=== PATIENT | male | born 1970 | race Caucasian/White ===

== ENCOUNTER 2018-09-15 23:17 | Inpatient (IN) | payer MEDICAID ==
[~2018-09-15] VITALS: Ht 172.7 cm; Wt 61.0 kg
[2018-09-15 23:45] VITALS: BP 129/77
--- NOTE | 2018-09-15 23:46 | NUR ---
RN MS ADMISSION NOTES RECEIVED PATIENT DIRECT ADMIT FROM [facility] WITH DX. OF GI BLEED. PATIENT IS ALERT AND ORIENTED X3, VERBALLY RESPONSIVE, ABLE TO MAKE NEEDS KNOWN. SPEECH IS SLOW BUT UNDERSTANDABLE. PATIENT ABLE TO AMBULATE. BREATHING EVEN AND UNLABORED. NO SOB NOTED. TOLERATING ROOM AIR. CURRENTLY WITH NO COMPLAINTS OF PAIN OR DISCOMFORT. IV ON RIGHT AC G#20 INTACT AND PATENT. SKIN DRY AND WARM TO TOUCH. AFEBRILE. SKIN ASSESSMENT RENDERED - FOUND MULTIPLE REDNESS AND BRUISES - PICTURES TAKEN AND PLACED IN CHART. ORIENTED TO THE USE OF UNIT AMENITIES. ALL OTHER NEEDS ATTENDED TO. SAFETY MEASURES IN PLACE. CALL LIGHT WITHIN REACH. WILL CONTINUE TO MONITOR.
[2018-09-15] MEDS ORDERED: THIA100T88 PO (23:51)
[2018-09-15] MEDS ORDERED: LEVE1000 PO (23:51)
[2018-09-15] MEDS ORDERED: LACT10SO PO (23:51)
[2018-09-15] MEDS ORDERED: SPIR25TA6 PO (23:51)
[2018-09-15] MEDS ORDERED: FERR325T23 PO (23:51)
[2018-09-15] MEDS ORDERED: ZONI100C6 PO (23:51)
[2018-09-15] MEDS ORDERED: FOLI1TAB16 PO (23:51)
[2018-09-15] MEDS ORDERED: PENT400T12 PO (23:51)
[2018-09-15] MEDS ORDERED: MULT1TAB73 PO (23:51)
--- NOTE | 2018-09-16 00:07 | NUR ---
RN MS NOTES INFORMED JOHN RIGGS OF PATIENT'S ADMISSION FROM [facility]. REQUESTED FOR ADMIT ORDERS. PER JOHN VUONG, HE WILL ENTER ORDERS IN.
[2018-09-16] MEDS ORDERED: MAGNESIUM HYDROXIDE 30 ML UDC PO PRN (00:30)
[2018-09-16] MEDS ORDERED: MAG HYDROX/AL HYDROX/SIMETH 30 ML UDC PO PRN (00:30)
[2018-09-16] MEDS ORDERED: HYDROCODONE/APAP 5/325MG 1 EACH TABLET PO PRN (00:30)
[2018-09-16] MEDS ORDERED: ACETAMINOPHEN 325 MG TABLET PO PRN (00:30)
[2018-09-16] MEDS ORDERED: ONDANSETRON HCL/PF 4 MG/2 ML VIAL IVP PRN (00:30)
[2018-09-16] MEDS ORDERED: Z GUARD REMEDY 2 OZ OINT TP PRN (00:30)
--- NOTE | 2018-09-16 00:42 | NUR ---
RN MS NOTES PATIENT'S ELECTRONIC CIGARETTE WAS TAKEN IN PUT IN A ZIPLOCK AND PLACED IN NURSING STATION WITH PATIENT'S LABEL.
--- NOTE | 2018-09-16 01:26 | NUR ---
RN MS NOTES PATIENT WAS INFORMED REGARDING OBTAINING A STOOL SAMPLE. INSTRUCTED PATIENT TO CALL NURSE OR FINANCIAL PLANNING CONSULTANT WHEN NEEDING TO MAKE BOWEL MOVEMENT. PATIENT DID NOT INFORM NURSE OR FINANCIAL PLANNING CONSULTANT THAT HE HAD ALREADY MADE A BOWEL MOVEMENT. SAW HIS STOOL IN THE TOILET AND INFORMED THE NURSE THEREAFTER. INSTRUCTED PATIENT TO LET NURSE KNOW THE NEXT TIME HE NEEDS TO GO SO THAT SOMEONE CAN ASSIST HIM IN OBTAINING A SAMPLE. PATIENT VERBALIZED UNDERSTANDING.
--- NOTE | 2018-09-16 05:28 | NUR ---
RN MS NOTES PATIENT HAS ALLERGIES TO COLOGNE FROM THE BRAND "POLO". UNABLE TO DOCUMENT IT COLOGNE AND ENTERED PERFUME INSTEAD. PER PATIENT HIS THROAT "CONSTRICTS" WITH THAT SPECIFIC COLOGNE. WILL NOTIFY ONCOMING NURSE.
[2018-09-16 05:51] LABS: BASOPHILS % (AUTO) 1.5 % (0.0-2.0); EOSINOPHILS % (AUTO) 2.1 % (0.0-6.0); HEMATOCRIT 37 % (39-51); HEMOGLOBIN 12.7 g/dL (13.5-17.5); LYMPHOCYTES # (AUTO) 0.6 /CMM (0.8-4.8); MEAN CORPUSCULAR HGB CONC 34 g/dl (31.0-36.0); MEAN CORPUSCULAR VOLUME 105 fL (80-96); MONOCYTES # (AUTO) 0.9 /CMM (0.1-1.30); MONOCYTES % (AUTO) 30.2 % (2.0-12.0); NEUTROPHILS # (AUTO) 1.3 /CMM (1.8-8.9); NEUTROPHILS % (AUTO) 44.2 % (43.0-81.0); WHITE BLOOD COUNT (AUTO) 2.9 K/uL (4.3-11.0)
[2018-09-16 06:02] LABS: ALBUMIN 2.9 g/dL (3.4-5.0); BILIRUBIN,TOTAL 0.7 mg/dL (0.2-1.0); CALCIUM, SERUM 8.3 mg/dL (8.5-10.1); CREATININE 0.6 mg/dL (0.6-1.3); MAGNESIUM 1.8 mg/dL (1.8-2.4); PHOSPHORUS 3.1 mg/dL (2.5-4.9); POTASSIUM 3.7 mmol/L (3.5-5.1); TOTAL PROTEIN, SERUM 7.4 g/dL (6.4-8.2)
[2018-09-16 06:10] LABS: THYROID STIMULATING HORMONE 0.774 uIU/mL (0.358-3.74)
[2018-09-16 06:20] LABS: PLATELET COUNT (AUTO) 31 /CMM (150-450)
--- NOTE | 2018-09-16 06:23 | NUR ---
RN MS NOTES RECEIVED CRITICAL RESULT FOR PLT = 31. PAGED CRITICAL CARE CLINICAL NURSE SPECIALIST YEVGENIY RIGGS. WAITING FOR A RESPONSE. WILL CONTINUE TO MONITOR.
[2018-09-16 06:28] LABS: APPEARANCE,URINE CLEAR (CLEAR); BILIRUBIN,URINE NEGATIVE (NEGATIVE); BLOOD, URINE NEGATIVE Ery/uL (NEGATIVE); COLOR,URINE YELLOW (YELLOW); KETONES,URINE NEGATIVE (NEGATIVE); LEUKOCYTE ESTERASE ,URINE 3+ (NEGATIVE); NITRITE, URINE POSITIVE (NEGATIVE); PH,URINE 7.5 (5.0-8.0); PROTEIN,URINE NEGATIVE (NEGATIVE); UGLUCOSE NEGATIVE (NEGATIVE)
[2018-09-16 06:47] LABS: BACTERIA,URINE Rare /HPF (None Seen); RBC,URINE NONE SEEN /HPF (0-2); SQUAMOUS EPITHELIAL CELL,UR Rare /HPF (None Seen); WBC,URINE 21-50 /HPF (0-3)
--- NOTE | 2018-09-16 06:48 | NUR ---
RN MS NOTES PATIENT RESTING IN BED. NO ACUTE CHANGES THROUGHOUT SHIFT. PATIENT HAD A BOWEL MOVEMENT ONCE THROUGHOUT SHIFT AND IT WAS BLACK IN COLOR. UNABLE TO OBTAIN SAMPLE PATIENT DID NOT INFORM NURSE WHEN HE WAS INSTRUCTED TO DO SO. WILL INFORM ONCOMING NURSE TO COLLECT WHEN PATIENT GOES AGAIN. BREATHING EVEN AND UNLABORED. NO SOB NOTED. TOLERATING ROOM AIR. NO COMPLAINTS OF PAIN OR DISCOMFORT. NO FACIAL GRIMACING. IV INTACT AND PATENT. KEPT NPO PER MD ORDER. ALL OTHER NEEDS ATTENDED TO. SAFETY MEASURES IN PLACE. CALL LIGHT WITHIN REACH. WILL ENDORSE TO ONCOMING NURSE FOR LISA.
--- NOTE | 2018-09-16 06:54 | NUR ---
RN MS NOTES PATIENT FOUNDER YEVGENIY KEELY AGAIN TO RELAY CRITICALLY LOW PLT OF 31. WAITING FOR RESPONSE. WILL RELAY TO ONCOMING NURSE, BEST FANG.
[2018-09-16] MEDS ORDERED: LACTULOSE 10 G/15 ML UDC (PYXIS) PO PRN (07:30)
--- NOTE | 2018-09-16 07:32 | NUR ---
RN OPENING NOTE PT WAS RECEIVED IN BED AT LOWEST AND LOCKED POSITION WITH SIDE RAILS UP X2, A/OX3 BREATHING EVEN AND UNLABORED ON RA, NO S/S OR CURRENT COMPLAINTS OF ANY DISTRESS OR PAIN NOTED, IV IS PATENT AND INTACT, NOTED THAT PT PLT WERE 31 HOSPITALIST GEOVANY GALVAN MADE AWARE AND HE STATED NO TRANSFUSION UNLESS ITS BELOW 20, SAFETY PRECAUTIONS IN PLACE, CALL LIGHT WITHIN REACH, WILL MONITOR ACCORDINGLY
[2018-09-16 08:00] VITALS: BP 114/61
[2018-09-16] MEDS ORDERED: LORAZEPAM INJ 2 MG/ML VIAL IV PRN (08:30)
[2018-09-16 08:43] LABS: LYMPHOCYTES % (MANUAL) 25 % (16-48); MONOCYTES % (MANUAL) 22 % (0-11.0); NEUTROPHILS % (MANUAL) 53 (42-76)
[2018-09-16] MEDS: LEVETIRACETAM (500MG) 1,500 MG in IV NS 0.9% 100 ML IV SCH ×2 (08:59→20:54)
[2018-09-16] MEDS ORDERED: PENTOXIFYLLINE 400 MG TABLET.SA PO SCH (09:00)
[2018-09-16] MEDS ORDERED: SPIRONOLACTONE 25 MG TABLET PO SCH (09:00)
[2018-09-16] MEDS ORDERED: THIAMINE HCL 100 MG TABLET PO SCH (09:00)
[2018-09-16] MEDS ORDERED: ZONISAMIDE 100 MG CAPSULE PO SCH (09:00)
[2018-09-16] MEDS ORDERED: FOLIC ACID 1 MG TABLET PO SCH (09:00)
[2018-09-16] MEDS ORDERED: LEVETIRACETAM (250 MG) 250 MG TABLET PO SCH (09:00)
[2018-09-16] MEDS ORDERED: FERROUS SULFATE (325 MG) 325 MG/TAB TABLET PO SCH (09:00)
[2018-09-16] MEDS: IV D5/ 0.9% NACL 1,000 ML IV PRN (09:02)
[2018-09-16] MEDS: PANTOPRAZOLE 40 MG VIAL IV SCH ×2 (09:12→16:05)
[2018-09-16] MEDS: MULTIVITAMINS,THERAGRAN 1 UDTAB TABLET PO SCH (09:13)
[2018-09-16] MEDS: CEFTRIAXONE 1 G in IV D5W 50 ML IV SCH (09:53)
--- NOTE | 2018-09-16 10:07 | NUR ---
WOUND CARE CONSULT:PATIENT PRESENT ON SCROTUM, INNER BUTTOCKS , BOTH GROIN MASD , AND BOTH ARMS MULTIPLE BRUISES ,SEIZURE PRECAUTION WILL BE APPLIED , ALL SKIN ISSUES POA,BEBO SCALE 19, RECOMMENDATION MADE AND DISCUSSED WITH NURSING STAFF , IN AGREEMENT WITH PLAN OF CARE Addendum: 09/16/18 at 1016 by ROSELINE ESTRELLA RN Amended: Links added.
--- NOTE | 2018-09-16 12:30 | NUR ---
RN NOTE STOOL COLLECTED FOR OCCULT BLOOD AT THIS TIME, WILL SEND TO LAB AND AWAIT RESULTS. WILL MONITOR PT ACCORDINGLY
[2018-09-16] MEDS: CLOTRIMAZOLE 1% 15 GM TUBE TP SCH ×2 (13:10→16:05)
[2018-09-16 16:00] VITALS: BP 131/74
[2018-09-16 16:42] LABS: OCCULT BLOOD STOOL POSITIVE (NEGATIVE)
--- NOTE | 2018-09-16 17:00 | NUR ---
RN NOTE CONSENT FOR EGD SIGNED AT THIS TIME
--- NOTE | 2018-09-16 18:20 | NUR ---
RN CLOSING NOTE PT IN BED AT LOWEST AND LOCKED POSITION WITH SIDE RAILS UP X2, A/OX3 BREATHING EVEN AND UNLABORED, NO S/S OF ANY DISTRESS OR PAIN NOTED, IV IS PATENT AND INTACT WITH IVF RUNNING, SAFETY PRECAUTIONS IN PLACE, CALL LIGHT WITHIN REACH, WILL ENDORSE TO RECONNAISSANCE MAN RN FOR LISA.
--- NOTE | 2018-09-16 19:30 | NUR ---
RN MS OPENING NOTES RECEIVED PATIENT IN BED AWAKE, ALERT AND ORIENTED X3, VERBALLY RESPONSIVE, ABLE TO MAKE NEEDS KNOWN. BREATHING EVEN AND UNLABORED. NO SOB NOTED. TOLERATING ROOM AIR. NO COMPLAINTS OF PAIN OR DISCOMFORT. NO FACIAL GRIMACING. IV INTACT AND PATENT WITH IVF INFUSING. REMAINS NPO PER MD ORDER. ALL OTHER NEEDS ATTENDED TO. SAFETY MEASURES IN PLACE. CALL LIGHT WITHIN REACH. WILL CONTINUE TO MONITOR.
[2018-09-16 20:00] VITALS: BP 132/75
--- NOTE | 2018-09-16 21:30 | NUR ---
RN MS NOTES RECEIVED TELEPHONE ORDER FROM JOHN TAM: 1. CANCEL EGD TOMORROW 09/17/18. 2. CANCEL NPO STATUS 3. CARDIAC DIET ORDERS NOTED AND CARRIED OUT. WILL CONTINUE TO MONITOR.
[2018-09-17] MEDS: IV D5/ 0.9% NACL 1,000 ML IV PRN (02:34)
[2018-09-17 06:30] LABS: BASOPHILS % (AUTO) 0.4 % (0.0-2.0); EOSINOPHILS % (AUTO) 2.2 % (0.0-6.0); HEMATOCRIT 41 % (39-51); HEMOGLOBIN 13.6 g/dL (13.5-17.5); LYMPHOCYTES # (AUTO) 0.4 /CMM (0.8-4.8); LYMPHOCYTES % (AUTO) 16.6 % (20.0-44.0); MEAN CORPUSCULAR HGB CONC 34 g/dl (31.0-36.0); MEAN CORPUSCULAR VOLUME 106 fL (80-96); MONOCYTES # (AUTO) 0.7 /CMM (0.1-1.30); MONOCYTES % (AUTO) 29.4 % (2.0-12.0); NEUTROPHILS # (AUTO) 1.3 /CMM (1.8-8.9); NEUTROPHILS % (AUTO) 51.4 % (43.0-81.0); RED BLOOD CELL COUNT(AUTO) 3.82 MIL/uL (4.5-6.0); WHITE BLOOD COUNT (AUTO) 2.5 K/uL (4.3-11.0)
[2018-09-17 06:39] LABS: CREATININE 0.7 mg/dL (0.6-1.3); POTASSIUM 3.8 mmol/L (3.5-5.1)
[2018-09-17 06:41] LABS: PLATELET COUNT (AUTO) 23 /CMM (150-450)
--- NOTE | 2018-09-17 06:46 | NUR ---
RN MS NOTES RECEIVED CRITICAL LAB RESULT FOR PLATELET OF 23. PAGED ND YEVGENIY RIGGS. WAITING FOR RESPONSE. WILL CONTINUE TO MONITOR.
--- NOTE | 2018-09-17 06:56 | NUR ---
RN MS CLOSING NOTES PATIENT RESTING IN BED. NO ACUTE CHANGES THROUGHOUT SHIFT. BREATHING EVEN AND UNLABORED. NO SOB NOTED. TOLERATING ROOM AIR. NO COMPLAINTS OF PAIN OR DISCOMFORT. NO FACIAL GRIMACING. IV INTACT AND PATENT WITH IVF INFUSING. ALL OTHER NEEDS ATTENDED TO. SAFETY MEASURES IN PLACE. CALL LIGHT WITHIN REACH. WILL ENDORSE TO ONCOMING NURSE FOR LISA.
--- NOTE | 2018-09-17 07:00 | NUR ---
MS RN NOTES PATIENT IN BED ALERT ORIENTED X 3. NO ACUTE DISTRESS NOTED. BREATHING UNLABORED. NO ACUTE DISTRESS NOTED. IV ACCESS PATENT AND INTACT, NO REDNESS OR SWELLING NOTED. SAFETY MEASURES IN PLACE. CALL LIGHT WITHIN REACH. WILL CONTINUE TO MONITOR ACCORDINGLY.
[2018-09-17 07:01] LABS: THYROID STIMULATING HORMONE 1.212 uIU/mL (0.358-3.74)
--- NOTE | 2018-09-17 07:23 | NUR ---
RN MS NOTES RELAYED TO DAY NURSE REGARDING PLT 23. ALSO INFORMED NURSE THAT HIGHWAY MAINTENANCE WORKER GEOVANY GAVE AN ORDER TO TRANSFUSE ONLY IF PLT IS LESS THAN 20.
--- NOTE | 2018-09-17 07:50 | NUR ---
MS RN NOTES DOCTOR GEOVANY GALVAN NOTIFIED REGARDING PLATELET 23, NO NEW ORDERS MADE AT THIS TIME.
[2018-09-17] MEDS: PANTOPRAZOLE 40 MG VIAL IV SCH ×2 (08:34→16:48)
[2018-09-17] MEDS: MULTIVITAMINS,THERAGRAN 1 UDTAB TABLET PO SCH (08:35)
[2018-09-17] MEDS: FOLIC ACID 1 MG TABLET PO SCH (08:35)
[2018-09-17] MEDS: CLOTRIMAZOLE 1% 15 GM TUBE TP SCH ×2 (08:35→16:49)
[2018-09-17 08:39] VITALS: BP 158/91
[2018-09-17] MEDS: CEFTRIAXONE 1 G in IV D5W 50 ML IV SCH (08:39)
[2018-09-17 08:58] LABS: LYMPHOCYTES % (MANUAL) 18 % (16-48); MONOCYTES % (MANUAL) 30 % (0-11.0); NEUTROPHILS % (MANUAL) 52 (42-76)
[2018-09-17] MEDS: LEVETIRACETAM (500MG) 1,500 MG in IV NS 0.9% 100 ML IV SCH (09:28)
--- NOTE | 2018-09-17 11:42 | NUR ---
MS RN NOTES SEEN AND EVALUATED BY DR GEOVANY GALVAN WITH NEW ORDERS MADE, NOTED AND CARRIED OUT.
[2018-09-17] MEDS ORDERED: phenytoin SODIUM IV 1,000 MG in IV NS 0.9% 100 ML IV ONE (12:00)
[2018-09-17] MEDS: SUCRALFATE 1 G TABLET PO SCH ×2 (16:48→21:13)
[2018-09-17 17:32] VITALS: BP 115/70
--- NOTE | 2018-09-17 19:00 | NUR ---
MS RN NOTES PATIENT IN BED ALERT ORIENTED X 3. NO ACUTE DISTRESS NOTED. BREATHING UNLABORED. NO ACUTE DISTRESS NOTED. IV ACCESS PATENT AND INTACT, NO REDNESS OR SWELLING NOTED. DUE MEDICATIONS GIVEN, NO ASE NOTED. NEEDS ATTENDED AND ANTICIPATED. SAFETY MEASURES IN PLACE. CALL LIGHT WITHIN REACH. ENDORSED TO NIGHT NURSE FOR CONTINUITY OF CARE.
--- NOTE | 2018-09-17 19:30 | NUR ---
MS/RN OPENING NOTES PT AWAKE. ON ROOM AIR, BREATHING EVEN AND UNLABORED. DENIES SOB AND PAIN AT THIS TIME. IV TO LAC PATENT AND INTACT RUNNING IVF ORDERED. NO NEEDS EXPRESSED AT THIS TIME. BED IN LOW/LOCKED POSITION WITH CALL LIGHT IN REACH, HOB ELEVATED AND BILAT. COSTA RAILS UP X2. BED ALARM ON FOR SAFETY. WILL CONTINUE TO MONITOR
[2018-09-17 20:00] VITALS: BP 118/68
[2018-09-17] MEDS: PHENYTOIN EXTENDED RELEASE 100 MG CAPSULE PO SCH (21:13)
[2018-09-17] MEDS: LEVETIRACETAM (250 MG) 250 MG TABLET PO SCH (21:13)
[2018-09-18] MEDS: IV D5/ 0.9% NACL 1,000 ML IV PRN ×2 (06:11→20:39)
[2018-09-18 06:12] LABS: BASOPHILS % (AUTO) 0.9 % (0.0-2.0); HEMATOCRIT 36 % (39-51); HEMOGLOBIN 12.2 g/dL (13.5-17.5); LYMPHOCYTES # (AUTO) 0.6 /CMM (0.8-4.8); MEAN CORPUSCULAR HGB CONC 34 g/dl (31.0-36.0); MEAN CORPUSCULAR VOLUME 106 fL (80-96); NEUTROPHILS # (AUTO) 1.2 /CMM (1.8-8.9); NEUTROPHILS % (AUTO) 41.1 % (43.0-81.0); RED BLOOD CELL COUNT(AUTO) 3.38 MIL/uL (4.5-6.0); WHITE BLOOD COUNT (AUTO) 2.9 K/uL (4.3-11.0)
[2018-09-18] MEDS: SUCRALFATE 1 G TABLET PO SCH ×4 (06:52→21:08)
--- NOTE | 2018-09-18 07:02 | NUR ---
MS RN NOTES PATIENT IN BED EYES CLOSED, EASY TO AROUSE. NO ACUTE DISTRESS NOTED. BREATHING UNLABORED. NO ACUTE DISTRESS NOTED. IV ACCESS PATENT AND INTACT, NO REDNESS OR SWELLING NOTED. SAFETY MEASURES IN PLACE. CALL LIGHT WITHIN REACH. WILL CONTINUE TO MONITOR ACCORDINGLY.
[2018-09-18 07:28] LABS: BAND % (MANUAL) 4 % (0.0-5.0); EOSINOPHILS % (MANUAL) 1 % (0-4); LYMPHOCYTES % (MANUAL) 23 % (16-48); MONOCYTES % (MANUAL) 30 % (0-11.0); NEUTROPHILS % (MANUAL) 42 (42-76)
[2018-09-18 07:38] LABS: PLATELET COUNT (AUTO) 25 /CMM (150-450)
--- NOTE | 2018-09-18 07:52 | NUR ---
MS/RN CLOSING NOTES PT ASLEEP, OPENS EYES TO NAME. REMAINS ON ROOM AIR, BREATHING EVEN AND UNLABORED. DENIES SOB AND PAIN. IV TO LFA PATENT AND INTACT RUNNING IVF ORDERED. NO SIGNIFICANT CHANGES OVERNIGHT. ALL NEEDS MET. AWAITING CALL FROM BLOOD BANK FOR 1 UNIT OF PLATELETS. BED REMAINS IN LOW/LOCKED POSITION WITH CALL LIGHT IN REACH, HOB ELEVATED AND BILAT. COSTA RAILS UP X2. BED ALARM ON FOR SAFETY. ENDORSED TO DAY SHIFT RN LISA.
[2018-09-18 08:00] VITALS: BP 112/70
[2018-09-18 08:08] LABS: IMMUNOGLOBULIN A, SERUM 701 mg/dL (90-386); IMMUNOGLOBULIN G, SERUM 2027 mg/dL (700-1600); IMMUNOGLOBULIN M, SERUM 275 mg/dL (20-172)
[2018-09-18] MEDS: FOLIC ACID 1 MG TABLET PO SCH (08:33)
[2018-09-18] MEDS: PANTOPRAZOLE 40 MG VIAL IV SCH ×2 (08:33→16:52)
[2018-09-18] MEDS: CLOTRIMAZOLE 1% 15 GM TUBE TP SCH ×2 (08:34→17:02)
[2018-09-18] MEDS: MULTIVITAMINS,THERAGRAN 1 UDTAB TABLET PO SCH (08:34)
[2018-09-18] MEDS: LEVETIRACETAM (250 MG) 250 MG TABLET PO SCH ×2 (08:34→20:40)
[2018-09-18] MEDS: CEFTRIAXONE 1 G in IV D5W 50 ML IV SCH (08:37)
[2018-09-18] MEDS ORDERED: CHLORDIAZEPOXIDE HCL 25 MG CAPSULE PO PRN (09:00)
--- NOTE | 2018-09-18 09:30 | NUR ---
MS RN NOTES SEEN AND EVALUATED BY DR GEOVANY GALVAN, CLARIFIED ONE UNIT OF PLATELETS TRANSFUSION, AWARE OF CURRENT PLATELETS LEVEL, WITH ORDERS TO GO AHEAD AND GIVE ONE UNIT PLATELETS.
[2018-09-18 10:20] VITALS: BP 127/69
--- NOTE | 2018-09-18 10:22 | NUR ---
MS RN NOTES STARTED PLATELETS TRANSFUSION, PATIENT WITH STABLE VITAL SIGNS, NO ACUTE DISTRESS NOTED, BREATHING UNLABORED. ALERT ORIENTED X 3. IV ACCESS PATENT AND INTACT. WILL CONTINUE TO MONITOR PATIENT.
[2018-09-18 10:37] VITALS: BP 107/72
[2018-09-18 10:54] VITALS: BP 105/68
--- NOTE | 2018-09-18 10:54 | NUR ---
MS RN NOTES ENDED PLATELETS TRANSFUSION, PATIENT REMAINS WITH STABLE VITAL SIGNS, NO ACUTE DISTRESS NOTED, BREATHING UNLABORED. ALERT ORIENTED X 3. IV ACCESS PATENT AND INTACT. NO ADVERSE REACTION OF PLATELET TRANSFUSION NOTED. WILL CONTINUE TO MONITOR PATIENT.
[2018-09-18 16:00] VITALS: BP 113/66
--- NOTE | 2018-09-18 19:00 | NUR ---
MS RN NOTES PATIENT IN BED ALERT ORIENTED X 3. NO ACUTE DISTRESS NOTED. BREATHING UNLABORED. NO ACUTE DISTRESS NOTED. IV ACCESS PATENT AND INTACT, NO REDNESS OR SWELLING NOTED.DUE MEDICATIONS GIVEN, NO ASE NOTED. NEEDS ATTENDED AND ANTICIPATED. KEPT CLEAN DRY AND COMFORTABLE. SAFETY MEASURES IN PLACE. CALL LIGHT WITHIN REACH. ENDORSED TO NIGHT NURSE FOR CONTINUITY OF CARE.
--- NOTE | 2018-09-18 19:20 | NUR ---
MS RN RECEIVE PT IN BED A/O X 3, RESPIRATIONS EVEN AND UNLABORED, NO SOB NOTED, NO DISTRESS, SAFETY MEASURES IN PLACE. WILL CONTINUE TO MONITOR.
[2018-09-18 20:00] VITALS: BP 102/67
[2018-09-18] MEDS: PHENYTOIN EXTENDED RELEASE 100 MG CAPSULE PO SCH (21:08)
--- NOTE | 2018-09-19 06:22 | NUR ---
MS RN ASLEEP AND EASILY AWAKEN, NO COMPLAIN OF ABDOMINAL PAIN, N/V. NO S/S OF BLEEDING NOTED. RESPIRATION EVEN AND UNLABORED, STABLE AND NOT IN DISTRESS, NURSING CARE RENDERED, NEEDS ATTENDED AND ANTICIPATED, KEPT CLEAN AND DRY AND COMFORTABLE. SAFETY MEASURES AT ALL TIMES. ENDORSE TO THE NEXT SHIFT.
--- NOTE | 2018-09-19 07:24 | NUR ---
RN OPENING NOTES PT RESTING IN BED. NO APPARENT S/S OF PAIN, DISTRESS OR SOB AT THIS TIME. PT HAS A LEFT FOREARM #20 IV RUNNING D5NS@75ML/HR. PT TOLERATING WELL. PT WILL BE NPO AT MIDNIGHT FOR EGD. SAFETY PRECAUTIONS IN PLACE, BED IN LOWEST LOCKED POSITION, X2 SIDE RAILS UP AND CALL LIGHT WITHIN REACH. WILL CONTINUE TO MONITOR.
[2018-09-19 08:00] VITALS: BP 116/78
[2018-09-19] MEDS: IV D5/ 0.9% NACL 1,000 ML IV PRN (08:10)
[2018-09-19] MEDS: MULTIVITAMINS,THERAGRAN 1 UDTAB TABLET PO SCH (08:12)
[2018-09-19] MEDS: LEVETIRACETAM (250 MG) 250 MG TABLET PO SCH ×2 (08:12→21:11)
[2018-09-19] MEDS: PANTOPRAZOLE 40 MG VIAL IV SCH ×2 (08:13→16:24)
[2018-09-19] MEDS: SUCRALFATE 1 G TABLET PO SCH ×4 (08:13→21:11)
[2018-09-19] MEDS: FOLIC ACID 1 MG TABLET PO SCH (08:13)
[2018-09-19] MEDS: CLOTRIMAZOLE 1% 15 GM TUBE TP SCH ×2 (08:20→17:09)
[2018-09-19] MEDS: NICOTINE PATCH (21MG) 21 MG PATCH.TD24 TD SCH (09:31)
[2018-09-19 16:00] VITALS: BP 125/73
[2018-09-19 16:28] VITALS: BP 123/73
[2018-09-19 16:38] VITALS: BP 124/75
--- NOTE | 2018-09-19 16:40 | NUR ---
RN NOTES BEGAN PLATELET TRANSFUSION. WILL CONTINUE TO MONITOR.
[2018-09-19 17:08] VITALS: BP 135/79
--- NOTE | 2018-09-19 18:37 | NUR ---
RN CLOSING NOTES PT RESTING IN BED. NO APPARENT S/S OF PAIN, DISTRESS OR SOB DURING SHIFT. PT HAS A LEFT FOREARM #20 IV RUNNING D5NS@75ML/HR. PT TOLERATING WELL. PT WILL BE NPO AT MIDNIGHT FOR EGD. PT S/P 1 UNIT 0F PLATELETS, NO SIGNS OF REACTION. SAFETY PRECAUTIONS IN PLACE, BED IN LOWEST LOCKED POSITION, X2 SIDE RAILS UP AND CALL LIGHT WITHIN REACH. WILL ENDORSE TO BRUSHER TENDER NURSE FOR CONTINUITY OF CARE.
--- NOTE | 2018-09-19 19:34 | NUR ---
RN MS OPENING NOTES RECEIVED REPORT BEDSIDE, PT SITTING UP IN BED, AWAKE ALERT ORIENTED X3, BREATHING EVEN AND UNLABORED ON ROOM AIR. NO COMPLAINT OF PAIN OR DISCOMFORT AT THIS TIME. IV ACCESS ON THE L FA 20G D5NS@75ML/HR. TO BE NPO AFTER MIDNIGHT FOR EGD IN AM. BED IN LOWEST LOCKED POSITION, CALL LIGHT WITHIN REACH AT ALL TIMES, WILL CONTINUE TO MONITOR FREQUENTLY
[2018-09-19 20:00] VITALS: BP 123/72
[2018-09-19] MEDS: PHENYTOIN EXTENDED RELEASE 100 MG CAPSULE PO SCH (21:11)
[2018-09-20] MEDS: IV D5/ 0.9% NACL 1,000 ML IV PRN (05:37)
--- NOTE | 2018-09-20 06:07 | NUR ---
RN MS CLOSING NOTES PT REMAINS IN BED, SLEEPING, EASILY AROUSED TO NAME CALL, BREATHING EVEN AND UNLABORED ON ROOM AIR. NO COMPLAINT OF PAIN OR DISCOMFORT AT THIS TIME. IV ACCESS ON THE L FA 20G D5NS@75ML/HR. REMAINS NPO, NO ON SCHEDULE FOR EGD, WILL ENDORSE TO DAY NURSE FOR F/U . BED IN LOWEST LOCKED POSITION, CALL LIGHT WITHIN REACH AT ALL TIMES, WILL ENDORSE FOR LISA
[2018-09-20] MEDS: SUCRALFATE 1 G TABLET PO SCH ×2 (07:30→11:44)
[2018-09-20 07:49] LABS: BASOPHILS % (AUTO) 0.9 % (0.0-2.0); EOSINOPHILS % (AUTO) 2.5 % (0.0-6.0); HEMATOCRIT 38 % (39-51); HEMOGLOBIN 12.8 g/dL (13.5-17.5); LYMPHOCYTES # (AUTO) 0.7 /CMM (0.8-4.8); LYMPHOCYTES % (AUTO) 25.7 % (20.0-44.0); MEAN CORPUSCULAR HGB CONC 34 g/dl (31.0-36.0); MEAN CORPUSCULAR VOLUME 107 fL (80-96); MONOCYTES # (AUTO) 0.7 /CMM (0.1-1.30); MONOCYTES % (AUTO) 25.8 % (2.0-12.0); NEUTROPHILS # (AUTO) 1.3 /CMM (1.8-8.9); NEUTROPHILS % (AUTO) 45.1 % (43.0-81.0); RED BLOOD CELL COUNT(AUTO) 3.54 MIL/uL (4.5-6.0); WHITE BLOOD COUNT (AUTO) 2.8 K/uL (4.3-11.0)
[2018-09-20 07:50] LABS: CALCIUM, SERUM 8.6 mg/dL (8.5-10.1); CREATININE 0.7 mg/dL (0.6-1.3); POTASSIUM 3.6 mmol/L (3.5-5.1)
--- NOTE | 2018-09-20 07:55 | NUR ---
M/S RN OPENING NOTES ENDORSEMENT RECEIVED FROM ANNALISA STAHL. RECEIVED PATIENT ON BED IN SUPINE POSITION, A/O X 4 AND ABLE TO MAKE NEEDS KNOWN, RESPONSIVE TO ALL STIMULI. RESPIRATION EVEN AND NON LABORED WITH NO ACUTE RESPIRATORY DISTRESS ON ROOM AIR. ABDOMEN SOFT AND NON DISTENDED, TENDER TO TOUCH WITH 8/10 SCALE. REPOSITION PATIENT FOR COMFORT AND STATED HE'S READY TO REST FOR NOW. SKIN WARM TO TOUCH AND DRY. IV SITE AT LEFT FA RUNNING D5NS AT 75 ML/HR. GOAL OF EGD TO BE DONE TODAY, WILL FF UP WITH MD. ALL CONCERNS ATTENDED. PLACED CALL LIGHT WITHIN REACH FOR SAFETY. WILL CONTINUE TO EVALUATE CARE.
[2018-09-20 08:00] VITALS: BP_SYST 109; BP_SYST 126; BP_DIAS 68; BP_DIAS 70
--- NOTE | 2018-09-20 08:00 | NUR ---
M/S RN NOTES GRISEL FROM LAB CALLED DUE TO LOW PLATELET OF 49.
[2018-09-20 08:04] LABS: PLATELET COUNT (AUTO) 49 /CMM (150-450)
[2018-09-20 08:06] LABS: *SPE A/G RATIO 0.9 (0.7-1.7); *SPE ALBUMIN 3.5 g/dL (2.9-4.4); *SPE ALPHA-1-GLOBULIN 0.3 g/dL (0.0-0.4); *SPE ALPHA-2-GLOBULIN 0.6 g/dL (0.4-1.0); *SPE BETA GLOBULIN 0.8 g/dL (0.7-1.3); *SPE M-SPIKE Not Observed g/dL (Not Observed); *SPEGAMMA GLOBULIN 2.4 g/dL (0.4-1.8)
[2018-09-20 08:28] LABS: BAND % (MANUAL) 6 % (0.0-5.0); EOSINOPHILS % (MANUAL) 4 % (0-4); LYMPHOCYTES % (MANUAL) 26 % (16-48); MONOCYTES % (MANUAL) 19 % (0-11.0); NEUTROPHILS % (MANUAL) 45 (42-76)
--- NOTE | 2018-09-20 08:45 | NUR ---
M/S RN NOTES PATIENT SEEN AND EVALUATED BY GEOVANY GALVAN NP. WAITING FOR GI MD TO CLEAR FOR EGD, POSSIBLE DC IF NOT DONE TODAY WITH PROTONIX BID PRESCRIPTION. CONTINUE TO BE NPO EVEN MEDICATION UNTIL FURTHER ORDER. WILL CONTINUE TO MONITOR CARE
--- NOTE | 2018-09-20 08:47 | NUR ---
M/S RN NOTES GEOVANY GALVAN MACHINE STEAK TENDERIZER WITH ORDER FOR DISCHARGE.
[2018-09-20] MEDS: LEVETIRACETAM (250 MG) 250 MG TABLET PO SCH (08:51)
[2018-09-20] MEDS: FOLIC ACID 1 MG TABLET PO SCH (08:51)
[2018-09-20] MEDS: MULTIVITAMINS,THERAGRAN 1 UDTAB TABLET PO SCH (08:51)
[2018-09-20] MEDS: NICOTINE PATCH (21MG) 21 MG PATCH.TD24 TD SCH (08:53)
[2018-09-20] MEDS: CLOTRIMAZOLE 1% 15 GM TUBE TP SCH (08:53)
[2018-09-20] MEDS: PANTOPRAZOLE 40 MG VIAL IV SCH (08:53)
--- NOTE | 2018-09-20 08:53 | NUR ---
INFORMATION SENT: FACESHEET,PROGRESS NOTES 09/19,UR 09/19,24 HOURS REPORT INSURANCE NAME: [facility] FAX NUMBER: [phone] / [phone] FAX SENT
--- NOTE | 2018-09-20 11:44 | NUR ---
M/S RN NOTES 12 NN MEDICATION SUCRALFATE NOT GIVEN DUE TO NPO STATUS.
--- NOTE | 2018-09-20 13:00 | NUR ---
M/S RN NOTES DR. CALI FOLLOWED UP WITHNO EGD TODAY. PATIENT OK FOR DC [place] GEOVANY GALVAN NP ORDERED
--- NOTE | 2018-09-20 15:30 | NUR ---
M/S DIRECTOR OF HEALTH EDUCATION NOTES PATIENT DISCHARGED WHEELED OUT BY SADIE ACOSTA IN A WHEELCHAIR AND RIDE TO A [place] SINCE HIS FATHER UNABLE TO PICK HIM UP, PATIENT A/O X 4 AND ABLE TO MAKE NEEDS KNOWN, RESPONSIVE TO ALL STIMULI. NO SHORTNESS OF BREATH NOTED. ABDOMEN SOFT AND NON DISTENDED WITH ACTIVE BOWEL SOUNDS, NO NOTED ACTIVE BLEEDING IN BM. SKIN WARM TO TOUCH WITH NO NEW OPEN SKIN BREAKDOWN. PATIENT DENIES PAIN AND DISCOMFORT. DISCHARGE EXIT CARE DONE WITH PATIENT AND EDUCATION WITH COMPLIANCE IN MEDICATION PRESCRIBED, RE ENFORCE SMOKING CESSATION TO PATIENT WITH VERBAL UNDERSTANDING. PATIENT LEFT THE HOSPITAL IN SAFE AND STABLE CONDITION.
== END 2018-09-20 15:30 | disposition home or self-care (01) | DRG 253 ==
LOC: MED 23:17
PROVIDERS: ADMIT Nurse Practitioner Acute Care; ATTEND Nurse Practitioner Acute Care
PROC: 30233P1 Transfusion of Nonautologous Frozen Red Cells into Peripheral Vein, Percutaneous Approach (ICD-10-PCS; principal; 2018-09-18)
DX: K92.2 Gastrointestinal hemorrhage, unspecified (principal); E43 Unspecified severe protein-calorie malnutrition; R64 Cachexia; D61.818 Other pancytopenia; K70.10 Alcoholic hepatitis without ascites; K70.30 Alcoholic cirrhosis of liver without ascites; F19.90 Other psychoactive substance use, unspecified, uncomplicated; G40.909 Epilepsy, unspecified, not intractable, without status epilepticus; F17.210 Nicotine dependence, cigarettes, uncomplicated; R31.9 Hematuria, unspecified; D53.9 Nutritional anemia, unspecified; Z68.20 Body mass index [BMI] 20.0-20.9, adult; R25.1 Tremor, unspecified; F10.239 Alcohol dependence with withdrawal, unspecified
CPT/HCPCS: 36415; 80048-TC; 80053-TC; 80061-TC; 80185-TC; 80305; 81000-TC; 82272-TC; 82728-TC; 82784; 83540-TC; 83735-TC; 84100-TC; 84155; 84165; 84443-TC; 85025-TC; 86334; 86850-TC; 87081-TC; 87086-TC; C9113; G0378; J0696; J1165; J1953; J2060; J2405; J3490; J7030; J7042; J7060; P9016-BL; P9034-BL

== ENCOUNTER 2019-03-22 14:21 | Inpatient (IN) | payer MEDICAID ==
[~2019-03-22] VITALS: Ht 172.7 cm; Wt 59.9 kg
[~2019-03-22 14:21] MED LIST: FERR325T23 PO; FOLI1TAB16 PO; LACT10SO PO; LEVE1000 PO; MULT1TAB73 PO; PENT400T17 PO; SPIR25TA6 PO; THIA100T88 PO; ZONI100C6 PO
--- NOTE | 2019-03-22 19:45 | NUR ---
GAS ATTENDANTHAULAGE BOSS NOTES Received this patient direct admit from [facility], accompanied by 2 diamond expert. Admitted to [id number]. Transferred to bed ad this time, patient noted unable to ambulate. Admission routine done. Per report patient was brought to ER by EMS due to unwitnessed fall. Initial assessment done, photos taken and documented. Patient on RA, no SOB/respiratory distress noted. With complaint of 10/10 L shoulder pain, aggregated by repositioning, relieved by inactivity. On tele monitor with NSR noted. Paged rugby union footballer MD at this time for ordered, awaiting for call back. Kept patient on bed clean, dry and comfortable. Call light at bedside, on fall precautions. Will continue to monitor accordingly.
[2019-03-22 20:00] VITALS: BP 124/65
[2019-03-22 20:27] VITALS: BP 124/65
--- NOTE | 2019-03-22 22:27 | NUR ---
DIRECTOR FIELD SERVICES NOTES F/U paged to oracle distribution consultant MD for admission orders. Awaiting for call back at this time.
--- NOTE | 2019-03-22 22:39 | NUR ---
WASH WORKER NOTES Received a call back from Dr. Fuad Estrada, awaiting for orders.
[2019-03-22] MEDS ORDERED: ONDANSETRON HCL/PF 4 MG/2 ML VIAL IVP PRN (23:00)
[2019-03-22] MEDS ORDERED: LORAZEPAM INJ 2 MG/ML VIAL IV PRN (23:00)
[2019-03-22] MEDS ORDERED: Medication Not On Formulary EA (Lactulose (Duphalac) 30 ML) PO PRN (23:00)
[2019-03-22] MEDS ORDERED: LACTULOSE 10 G/15 ML UDC (PYXIS) PO PRN (23:45)
[2019-03-23] VITALS (10 sets, daily range): BP systolic 105–163; BP diastolic 59–69
[2019-03-23] MEDS: MORPHINE SULFATE INJ 4 MG/ML DISP.SYRIN IV PRN ×5 (00:19→19:33)
--- NOTE | 2019-03-23 00:30 | NUR ---
ELECTRIC ORGAN INSPECTOR AND REPAIRER NOTES Offered drinks to patient, was able to consume 1 cup of orange juice and 1 cup of water. Encouraged patient to rinse mouth with mouthwash. Patient tolerated procedures well. Will continue to monitor accordingly.
--- NOTE | 2019-03-23 06:49 | NUR ---
TIMBER INCISOR OPERATOR CLOSING NOTES Patient intermittently asleep, easily awaken. On RA, no SOB/respiratory distress noted. On tele monitor with Sinus Tach noted. Medicated for pain, noted effective. All due meds given as ordered. All nursing needs attended. Kept on bed clean, dry and comfortable. Call light within easy reach. Endorsed to the next shift.
[2019-03-23 06:57] LABS: BASOPHILS # (AUTO) 0.1 /CMM (0.0-0.2); BASOPHILS % (AUTO) 1.8 % (0.0-2.0); EOSINOPHILS % (AUTO) 1.8 % (0.0-6.0); HEMATOCRIT 27 % (39-51); HEMOGLOBIN 9.2 g/dL (13.5-17.5); LYMPHOCYTES # (AUTO) 0.6 /CMM (0.8-4.8); LYMPHOCYTES % (AUTO) 11.5 % (20.0-44.0); MEAN CORPUSCULAR HGB CONC 34 g/dl (31.0-36.0); MEAN CORPUSCULAR VOLUME 117 fL (80-96); MONOCYTES # (AUTO) 0.9 /CMM (0.1-1.30); MONOCYTES % (AUTO) 17.1 % (2.0-12.0); NEUTROPHILS # (AUTO) 3.7 /CMM (1.8-8.9); NEUTROPHILS % (AUTO) 67.8 % (43.0-81.0); RED BLOOD CELL COUNT(AUTO) 2.32 MIL/uL (4.5-6.0); WHITE BLOOD COUNT (AUTO) 5.4 K/uL (4.3-11.0)
[2019-03-23 07:18] LABS: THYROID STIMULATING HORMONE 1.803 uIU/mL (0.358-3.74)
--- NOTE | 2019-03-23 07:20 | NUR ---
JEWELRY MAKING INSTRUCTOR NOTES PATIENT RECEIVED RESTING INSIDE ROOM. AWAKE, ALERT AND ORIENTED X 3, NO ACUTE DISTRESS. NO C/O PAIN OR DISCOMFORT. PATIENT CALM AND RELAXED. BED ALARM ON. SAFETY PRECAUTIONS IN PLACE. WILL CONTINUE TO MONITOR. BED LOCKED AND IN LOW POSITION. BILATERAL UPPER SIDE RAILS UP AND LOCKED. CALL LIGHT WITHIN EASY REACH
[2019-03-23 07:27] LABS: PLATELET COUNT (AUTO) 24 /CMM (150-450)
--- NOTE | 2019-03-23 07:43 | NUR ---
ROLL FORMING MACHINE SET UP MECHANIC NOTES RECEIVED CALL FROM LAB WITH REPORT OF CRITICAL PLT WITH RESULT OF 24. DR GALVAN AT UNIT AND MADE AWARE. NO NEW ORDERS AT THIS TIME. WILL CONTINUE TO MONITOR
[2019-03-23 07:47] LABS: BILIRUBIN,TOTAL 2.4 mg/dL (0.2-1.0); CALCIUM, SERUM 7.5 mg/dL (8.5-10.1); CREATININE 0.6 mg/dL (0.6-1.3); MAGNESIUM 1.6 mg/dL (1.8-2.4); PHOSPHORUS 2.5 mg/dL (2.5-4.9); POTASSIUM 4.8 mmol/L (3.5-5.1); TOTAL PROTEIN, SERUM 5.9 g/dL (6.4-8.2)
[2019-03-23 08:06] LABS: EOSINOPHILS % (MANUAL) 1 % (0-4); LYMPHOCYTES % (MANUAL) 13 % (16-48); MONOCYTES % (MANUAL) 15 % (0-11.0); NEUTROPHILS % (MANUAL) 71 (42-76)
--- NOTE | 2019-03-23 08:58 | NUR ---
WOUND CARE CONSULT: PT PRESENTS WITH MULTIPLE AREAS OF BRUISING, DRY PATCHY SKIN CONDITION ON LOWER LEGS AND RASH TO GROIN FOLDS, PERINEUM, PRESENT ON ADMISSION. RECOMMENDATIONS MADE FOR SKIN PROTECTION AND CARE. DISCUSSED WITH NURSING STAFF. WILL SEE PRN. OSORIO IN AGREEMENT WITH PLAN OF CARE. Addendum: 03/23/19 at 0900 by SERVANDO KWONG WNDNU Amended: Links added.
[2019-03-23] MEDS ORDERED: Medication Not On Formulary EA (Multivitamins 1 TAB) PO SCH (09:00)
[2019-03-23] MEDS ORDERED: Z GUARD REMEDY 2 OZ OINT TP PRN (09:00)
[2019-03-23] MEDS: THIAMINE HCL 100 MG TABLET PO SCH (09:12)
[2019-03-23] MEDS: MULTIVITAMINS,THERAGRAN 1 UDTAB TABLET PO SCH (09:12)
[2019-03-23] MEDS: LEVETIRACETAM (250 MG) 250 MG TABLET PO SCH ×2 (09:12→16:03)
[2019-03-23] MEDS: SPIRONOLACTONE 25 MG TABLET PO SCH (09:12)
[2019-03-23] MEDS: FAMOTIDINE (20 MG) 20 MG TABLET PO SCH ×2 (09:12→20:50)
[2019-03-23] MEDS: FOLIC ACID 1 MG TABLET PO SCH (09:12)
[2019-03-23] MEDS: PENTOXIFYLLINE 400 MG TABLET.SA PO SCH ×3 (09:12→16:03)
[2019-03-23] MEDS: CLOTRIMAZOLE 1% 15 GM TUBE TP SCH ×2 (10:02→16:03)
[2019-03-23] MEDS: Z GUARD REMEDY 2 OZ OINT TP SCH (10:02)
[2019-03-23] MEDS: Magnesium 1GM/D5W 100ML PREMIX 100 ML IV SCH ×2 (10:23→11:50)
--- NOTE | 2019-03-23 11:42 | NUR ---
MS RN NOTES RECEIVED ORDER FROM DR GALVAN FOR PLATELET TRANSFUSION OF [address] VERIFIED ORDER WITH DR GALVAN AND THAT PLATELET NEEDS TO BE TRANSFUSED TODAY. BLOOD BANK MADE AWARE AND VERIFIED THAT ORDER NEEDS TO BE 'STAT' IN ORDER TO BE DELIVERED TODAY, OTHERWISE WILL BE DELIVERED TOMORROW. DR GALVAN MADE AWARE AND CHANGED PLATELET 1 UNIT TRANSFUSION STAT. ORDERED NOTED AND CARRIED OUT. BLOOD BANK MADE AWARE. WILL CONTINUE TO MONITOR
--- NOTE | 2019-03-23 12:00 | NUR ---
MS RN NOTES PATIENT SEEN AND EXAMINED BY HANS VIVAR. WITH PLAN FOR ORIF ON LEFT SHOULDER. VERIFIED INFORMED CONSENT OBTAINED BY MY FROM PATIENT AND WITNESSED BY NURSING STAFF. PATIENT SIGNED CONSENT FORMS BUT UNABLE TO SIGN LEGIBLY PATIENT HAS TREMORS. WILL CONTINUE TO MONITOR
--- NOTE | 2019-03-23 12:25 | NUR ---
MS RN NOTES RECEIVED CALL FROM ILIANA LOZANO FOR LEFT HUMERUS /LEFT UPPER EXTREMITY CT WITH 3D-RECONSTRUCTION. ORDER NOTED AND CARRIED OUT. PATIENT MADE AWARE AND VERBALIZED UNDERSTANDING. RADIOLOGY MADE AWARE. WILL CONTINUE TO MONITOR
--- NOTE | 2019-03-23 16:16 | NUR ---
MS RN NOTES PLATELET TRANSFUSION STARTED, PATIENT TOLERATING WELL. NO REACTIONS NOTED AT THIS TIME. WILL CONTINUE TO MONITOR
--- NOTE | 2019-03-23 17:16 | NUR ---
MS RN NOTES PLATELET TRANSFUSION ENDED, NO REACTIONS NOTED. PATIENT TOLERATED WELL. WILL CONTINUE TO MONITOR
--- NOTE | 2019-03-23 18:38 | NUR ---
MS RN CLOSING NOTE PATIENT SLEEPING INTERMITTENTLY. PATIENT SHOWS NO SIGNS OF RESPIRATORY DISTRESS, O2 SATURATION >95% ON RA. S/P PLATELET TRANSFUSION NO REACTION NOTED AT THIS TIME. VITALS SIGNS NORMAL. ALL DUE MEDS GIVEN ORDERED. IV SITES SALINE LOCK IS CLEAN AND SHOWS NO SIGNS OF INFILTRATION. BED IN LOWEST POSITION. SIDE RAILS X2 IN UPRIGHT POSITION. CALL LIGHT IS WITHIN REACH. WILL ENDORSE TO CREEL CLERK.
--- NOTE | 2019-03-23 19:45 | NUR ---
MS RN OPENING NOTES RECEIVED PATIENT FROM MORNING SHIFT ALERT AND ORIENTED X 3. VERBALLY RESPONSIVE AND ABLE TO FOLLOW DIRECTIONS. BREATHING REGULAR AND UNLABORED ON ROOM AIR. RIGHT HAND G22 AND RIGHT AC G20 IV LINES INTACT AND PATENT, FLUSHING WELL WITH NO BLEEDING OR S/S OF INFILTRATION/INFECTION NOTED. COMPLAINED OF 8/10 LEFT SHOULDER PAIN, MORPHINE 4MG GIVEN VIA IV PUSH. NON-PHARMACOLOGICAL INTERVENTIONS PROVIDED. LEFT ARM SLING IN PLACED. BODY ASSESSMENT DONE, SEEN WITH MULTIPLE BRUISES AND GROIN REDNESS. ADVISED TO BE NPO POST MIDNIGHT. BED LOW AND LOCKED ON SEMI FOWLERS POSITION. WILL CONTINUE TO MONITOR.
--- NOTE | 2019-03-23 21:20 | NUR ---
MS RN NOTES CXR AND EKG DONE. EKG RESULT ATTACHED TO CHART.
[2019-03-24] VITALS (11 sets, daily range): BP systolic 112–149; BP diastolic 48–74
--- NOTE | 2019-03-24 00:15 | NUR ---
MS RN NOTES COMPLAINED OF NAUSEA AND VOMITING. BASIN OFFERED, SPIT OUT SALIVA ONLY WITH NO GASTRIC JUICES OR FOOD NOTED. ZOFRAN 4MG GIVEN VIA IV PUSH. MAINTAINED NPO. WILL CONTINUE TO MONITOR.
--- NOTE | 2019-03-24 05:32 | NUR ---
MS RN NOTES REMOVED SILVER NECKLACE, PLACED ON A SMALL ZIPLOC BAG WITH HIS NAME ON IT. GAVE IT TO THE CHARGE NURSE FOR SAFE KEEPING. WILL ENDORSE TO MORNING SHIFT.
--- NOTE | 2019-03-24 06:26 | NUR ---
MS RN CLOSING NOTES PATIENT IN BED ALERT AND ORIENTED X 3. VERBALLY RESPONSIVE AND ABLE TO FOLLOW DIRECTIONS. BREATHING REGULAR AND UNLABORED ON ROOM AIR. RIGHT AC G20 IV LINE INTACT AND PATENT, FLUSHING WELL WITH NO BLEEDING OR S/S OF INFILTRATION/INFECTION NOTED. MAINTAINED ON NPO. KEPT LEFT ARM SLING IN PLACED. OBSERVED WITH EPISODES OF SHAKING. NO COMPLAINTS OF PAIN/DISCOMFORT REPORTED OF THE TIME. BOWEL AND BLADDER CONTINENT, ASSISTED ON GOING TO THE COMMODE. BED LOW AND LOCKED ON SEMI FOWLERS POSITION. CALL LIGHT IN REACH. WILL ENDORSE TO MORNING SHIFT FOR SURGERY.
[2019-03-24 06:34] LABS: BASOPHILS % (AUTO) 0.5 % (0.0-2.0); EOSINOPHILS % (AUTO) 0.2 % (0.0-6.0); LYMPHOCYTES # (AUTO) 0.3 /CMM (0.8-4.8); MEAN CORPUSCULAR HGB CONC 34 g/dl (31.0-36.0); MEAN CORPUSCULAR VOLUME 118 fL (80-96); MONOCYTES % (AUTO) 17.9 % (2.0-12.0); NEUTROPHILS # (AUTO) 4.1 /CMM (1.8-8.9); NEUTROPHILS % (AUTO) 76.4 % (43.0-81.0); WHITE BLOOD COUNT (AUTO) 5.4 K/uL (4.3-11.0)
[2019-03-24 06:53] LABS: CALCIUM, SERUM 7.6 mg/dL (8.5-10.1); CREATININE 0.6 mg/dL (0.6-1.3); MAGNESIUM 1.7 mg/dL (1.8-2.4)
[2019-03-24 07:01] LABS: RED BLOOD CELL COUNT(AUTO) 1.59 MIL/uL (4.5-6.0)
[2019-03-24 07:04] LABS: HEMATOCRIT 19 % (39-51); HEMOGLOBIN 6.4 g/dL (13.5-17.5); PLATELET COUNT (AUTO) 28 /CMM (150-450)
--- NOTE | 2019-03-24 07:10 | NUR ---
MS RN NOTES LAB REPORTED CRITICAL VALUES OF Hgb 6.4, Hct 19 AND Platelet 28. MADE AWARE. SURGERY DEPARTMENT MADE AWARE. WILL ENDORSE ACCORDINGLY.
--- NOTE | 2019-03-24 07:16 | NUR ---
MS RN NOTES PATIENT IN BED ALERT ORIENTED X 3. NO ACUTE DISTRESS NOTED, BREATHING UNLABORED. NO SOB NOTED. IV ACCESS PATENT AND INTACT, NO REDNESS OR SWELLING NOTED.HOB ELEVATED. SAFETY MEASURES IN PLACE. CALL LIGHT WITHIN REACH, WILL CONTINUE TO MONITOR ACCORDINGLY.
--- NOTE | 2019-03-24 07:45 | NUR ---
MS RN NOTES DR HARRIS PRESENT ON THE FLOOR MADE AWARE OF LABORATORY RESULTS FROM TODAY INCLUDING CRITICAL RESULT HGB 6.4. HCT 19, PLATELET 28, DR MENEZES SAID SHE WILL PUT IN ORDERS.
[2019-03-24 08:46] LABS: LYMPHOCYTES % (MANUAL) 4 % (16-48); MONOCYTES % (MANUAL) 14 % (0-11.0); NEUTROPHILS % (MANUAL) 82 (42-76)
[2019-03-24] MEDS: FAMOTIDINE (20 MG) 20 MG TABLET PO SCH ×2 (09:00→20:43)
[2019-03-24] MEDS: PENTOXIFYLLINE 400 MG TABLET.SA PO SCH ×3 (09:00→16:28)
[2019-03-24] MEDS: FOLIC ACID 1 MG TABLET PO SCH (09:00)
[2019-03-24] MEDS: THIAMINE HCL 100 MG TABLET PO SCH (09:00)
[2019-03-24] MEDS: MULTIVITAMINS,THERAGRAN 1 UDTAB TABLET PO SCH (09:00)
[2019-03-24] MEDS: CHLORDIAZEPOXIDE HCL 25 MG CAPSULE PO SCH ×2 (09:00→16:28)
[2019-03-24] MEDS: LEVETIRACETAM (250 MG) 250 MG TABLET PO SCH ×2 (09:00→16:29)
[2019-03-24] MEDS: SPIRONOLACTONE 25 MG TABLET PO SCH (09:00)
[2019-03-24] MEDS: CLOTRIMAZOLE 1% 15 GM TUBE TP SCH ×2 (09:26→16:30)
[2019-03-24] MEDS: Z GUARD REMEDY 2 OZ OINT TP SCH (09:37)
--- NOTE | 2019-03-24 10:12 | NUR ---
MS RN NOTES RECEIVED A CALL FROM OPERATING ROOM REGARDING SURGERY CANCELLED TODAY DUE TO LOW HGB/HCT AND PLATELET , NOTIFED DR HARRIS MADE AWARE, CLARIFIED DIET ORDERS, AWAITING FOR CALL BACK.
--- NOTE | 2019-03-24 10:38 | NUR ---
MS RN NOTES RECEIVED NEW ORDERS FROM DR HARRIS TO DISCONTINUE NPO DIET RESUME REGULAR DIET, NOTED AND CARRIED OUT.
[2019-03-24] MEDS: Magnesium 1GM/D5W 100ML PREMIX 100 ML IV SCH ×2 (10:43→12:06)
--- NOTE | 2019-03-24 17:24 | NUR ---
MS RN NOTES BLOOD TRANSFUSION STARTED, PATIENT WITH STABLE VITAL SIGNS. WILL CONTINUE TO MONITOR PATIENT.
--- NOTE | 2019-03-24 17:39 | NUR ---
MS RN NOTES WITH ON GOING BLOOD TRANSFUSION , PATIENT WITH STABLE VITAL SIGNS. NO SIGNS AND SYMPTOMS OF ADVERSE REACTION NOTED. WILL CONTINUE TO MONITOR PATIENT.
--- NOTE | 2019-03-24 19:00 | NUR ---
MS RN NOTES PATIENT IN BED ALERT ORIENTED X 3. NO ACUTE DISTRESS NOTED, BREATHING UNLABORED. NO SOB NOTED. IV ACCESS PATENT AND INTACT, NO REDNESS OR SWELLING NOTED.KEPT CLEAN DRY AMD COMFORTABLE. NEEDS ATTENDED AND ANTICIPATED. WITH LEFT SHOULDER SLING ON AT ALL TIMES. HOB ELEVATED. SAFETY MEASURES IN PLACE. CALL LIGHT WITHIN REACH. PATIENT WITH ON GOING BLOOD TRANSFUSION , WITH STABLE VITAL SIGNS. NO SIGNS AND SYMPTOMS OF ADVERSE REACTION NOTED. WILL ENDORSE TO NIGHT NURSE FOR CONTINUITY OF CARE.
--- NOTE | 2019-03-24 19:30 | NUR ---
MS RN NOTES RECEIVED ON BED A/O X2-3,CONFUSED DUE TO ETOH WITHDRAWAL,S/P FALL AT HOME,SUSTAINED FRACTURE LEFT SHOULDER,APPEARS SWOLLEN AND PURPLISH,SLING IN USED IMMOBILIZER,MULTIPLE BRUISING NOTED ON UPPER AND LOWER EXTREMITIES,ABLE TO SWALLOW MEDICATIONS.FIRST UNIT OF PRBC IN PROGRESS FOR H/H 6.09/17.SEIZURE PRECAUTION OBSERVED,SIDE RAILS PADDED FOR INJURY PRECAUTION,VERY RESTLESS ON BED,FREQUENT CHECK Q 15 MINUTES INITIATED.WILL CONTINUE TO MONITOR STATUS.
--- NOTE | 2019-03-24 19:40 | NUR ---
MS RN NOTES FIRST UNIT OF PRBC COMPLETED,NO ADVERSE REACTION NOTED,NS FLUSHING IN PROGRESS.
--- NOTE | 2019-03-24 19:45 | NUR ---
MS RN NOTES VITAL SIGNS WITH IN NORMAL LIMITS.
--- NOTE | 2019-03-24 20:31 | NUR ---
MS RN NOTES SECOND UNIT OF PRBC,291ML STARTED.VITAL SIGNS WITH IN NORMAL LIMITS.
[2019-03-24] MEDS: MORPHINE SULFATE INJ 4 MG/ML DISP.SYRIN IV PRN (22:31)
--- NOTE | 2019-03-24 22:31 | NUR ---
MS RN NOTES PAIN MANAGEMENT APPEARS RESTLESS,MORPHINE 4MG ADMINISTERED IV ORDERED FOR SEVERE PAIN
--- NOTE | 2019-03-24 23:01 | NUR ---
MS RN NOTES SECOND UNIT OF PRBC COMPLETED,NO ADVERSE REACTION NOTED
--- NOTE | 2019-03-24 23:29 | NUR ---
MS RN NOTES PLATELETS 321ML STARTED VIA GRAVITY,CONSUMED AT 0030,TOLERATED WELL.NO ADVERSE REACTION NOTED.
[2019-03-25] MEDS: LORAZEPAM INJ 2 MG/ML VIAL IV PRN (00:27)
--- NOTE | 2019-03-25 00:27 | NUR ---
MS RN NOTES HAVING ON AND OFF MILD TREMORS,MEDICATED WITH ATIVAN 1MG IV NEW ORDER BY DR BOCANEGRA Q 4 HOURS PRN
[2019-03-25 00:38] VITALS: BP 119/79
--- NOTE | 2019-03-25 00:45 | NUR ---
MS RN NOTES PLACE ON BILATERAL SOFT RESTRAINTS,TRYING TO GET OUT OF BED,VERY RESTLESS.
[2019-03-25 02:46] LABS: HEMOGLOBIN 8.7 g/dL (13.5-17.5); LYMPHOCYTES # (AUTO) 0.4 /CMM (0.8-4.8)
[2019-03-25 02:58] LABS: EOSINOPHILS % (AUTO) 0.1 % (0.0-6.0); HEMATOCRIT 26 % (39-51); LYMPHOCYTES % (AUTO) 3.2 % (20.0-44.0); MEAN CORPUSCULAR HGB CONC 34 g/dl (31.0-36.0); MEAN CORPUSCULAR VOLUME 106 fL (80-96); MONOCYTES # (AUTO) 2.2 /CMM (0.1-1.30); NEUTROPHILS # (AUTO) 8.9 /CMM (1.8-8.9); NEUTROPHILS % (AUTO) 77.7 % (43.0-81.0); PLATELET COUNT (AUTO) 69 /CMM (150-450); WHITE BLOOD COUNT (AUTO) 11.5 K/uL (4.3-11.0)
[2019-03-25 04:26] LABS: LYMPHOCYTES % (MANUAL) 4 % (16-48); MONOCYTES % (MANUAL) 10 % (0-11.0); NEUTROPHILS % (MANUAL) 86 (42-76)
[2019-03-25] MEDS: CHLORDIAZEPOXIDE HCL 25 MG CAPSULE PO SCH ×3 (05:12→21:37)
[2019-03-25 06:37] LABS: BASOPHILS % (AUTO) 0.1 % (0.0-2.0); EOSINOPHILS % (AUTO) 0.1 % (0.0-6.0); HEMATOCRIT 25 % (39-51); HEMOGLOBIN 8.5 g/dL (13.5-17.5); LYMPHOCYTES # (AUTO) 0.3 /CMM (0.8-4.8); MEAN CORPUSCULAR HGB CONC 35 g/dl (31.0-36.0); MEAN CORPUSCULAR VOLUME 107 fL (80-96); MONOCYTES # (AUTO) 1.6 /CMM (0.1-1.30); MONOCYTES % (AUTO) 17.5 % (2.0-12.0); NEUTROPHILS # (AUTO) 7.3 /CMM (1.8-8.9); NEUTROPHILS % (AUTO) 79.3 % (43.0-81.0); PLATELET COUNT (AUTO) 53 /CMM (150-450); WHITE BLOOD COUNT (AUTO) 9.2 K/uL (4.3-11.0)
[2019-03-25 06:45] LABS: CALCIUM, SERUM 8.3 mg/dL (8.5-10.1); CREATININE 0.9 mg/dL (0.6-1.3); MAGNESIUM 1.8 mg/dL (1.8-2.4); PHOSPHORUS 1.4 mg/dL (2.5-4.9); POTASSIUM 3.6 mmol/L (3.5-5.1)
--- NOTE | 2019-03-25 07:05 | NUR ---
MS RN NOTES ON BED,STILL WITH EPISODE OF ALCOHOL WITHDRAWAL.RESTRAINTS PROTOCOL OBSERVED.NO SEIZURE ACTIVITY NOTED.SIDE RAILS PADDED.IN NO ACUTE DISTRESS.WILL ENDORSE TO DAY NURSE FOR LISA.
--- NOTE | 2019-03-25 07:20 | NUR ---
MS/RN NOTE THE PATIENT IS RECEIVED IN BED. PATIENT IS AWAKE. ALERT AND ORIENTED X1. IN ROOM AIR AND DENIES SOB. RESPIRATION REGULAR AND UNLABORED. DENIES PAIN. RAC G 20 PATENT AND SALINE LOCKED. PATIENT IS NOTED WITH SOFT RESTRAINS ON. NO S/S POOR CIRCULATION NOTED. LEFT SHOULDER WEARING SLING. BED LOW AND LOCKED. SIDE RAILS UP X3 AND PADDED. SITTER AT THE BEDSIDE. WILL CONTINUE TO MONITOR.
[2019-03-25 08:00] VITALS: BP 111/58
[2019-03-25] MEDS: THIAMINE HCL 100 MG TABLET PO SCH (08:20)
[2019-03-25] MEDS: FAMOTIDINE (20 MG) 20 MG TABLET PO SCH ×2 (08:20→21:37)
[2019-03-25] MEDS: LEVETIRACETAM (250 MG) 250 MG TABLET PO SCH ×2 (08:20→16:53)
[2019-03-25] MEDS: MULTIVITAMINS,THERAGRAN 1 UDTAB TABLET PO SCH (08:21)
[2019-03-25] MEDS: FOLIC ACID 1 MG TABLET PO SCH (08:21)
[2019-03-25] MEDS: SPIRONOLACTONE 25 MG TABLET PO SCH (08:21)
[2019-03-25] MEDS: PENTOXIFYLLINE 400 MG TABLET.SA PO SCH ×3 (08:21→16:53)
[2019-03-25] MEDS: CLOTRIMAZOLE 1% 15 GM TUBE TP SCH ×2 (08:31→17:00)
[2019-03-25] MEDS ORDERED: K PHOS NEUTRAL 250 MG TABLET PO ONE (11:30)
[2019-03-25] MEDS: Z GUARD REMEDY 2 OZ OINT TP SCH (12:42)
[2019-03-25 16:00] VITALS: BP 124/69
--- NOTE | 2019-03-25 16:42 | NUR ---
MS/RN NOTE RECEIVED NEW ORDER FROM DR MENEZES FOR MECHANICAL SOFT DIET. THE ORDER IS READ BACK, VERIFIED. NOTED AND CARRIED OUT.
--- NOTE | 2019-03-25 18:32 | NUR ---
MS/ RN NOTES PATIENT IN BED ALERT ORIENTED X 1. NO ACUTE DISTRESS NOTED, BREATHING UNLABORED, NO SOB NOTED. ON ROOM AIR. IV ACCESS PATENT AND INTACT RAC 20G SALINE LOCK , NO REDNESS OR SWELLING NOTED. KEPT CLEAN DRY AND COMFORTABLE. NEEDS ATTENDED AND ANTICIPATED. WITH LEFT SHOULDER SLING ON AT ALL TIMES. HOB ELEVATED. SAFETY MEASURES IN PLACE. BED LOW AND LOCKED, SIDE RAILS UP X3 PADDED. CALL LIGHT WITHIN REACH. SITTER AT BEDSIDE. WILL ENDORSE TO NIGHT NURSE FOR CONTINUITY OF CARE.
--- NOTE | 2019-03-25 19:05 | NUR ---
MS RN NOTES RECEIVED PT IN BED AWAKE WITH SITTER AT BEDSIDE. PT A/O X1. RESPIRATIONS EVEN AND UNLABORED WITH NO S/S OF ACUTE DISTRESS OR SOB NOTED. PT WITH RAC #20G PATENT AND INTACT AND SL. PT NOTED WITH LEFT SHOULDER SLING ON AND HOB ELEVATED. SAFETY MEASURES IN PLACE WITH BED IN LOWEST LOCKED POSITION WITH SIDE RAILS UP X3 AND PADDED. CALL LIGHT WITHIN REACH. WILL CONTINUE TO MONITOR.
--- NOTE | 2019-03-25 19:31 | NUR ---
MS/RN NOTE RECEIVED ORDER FROM DR MENEZES STOOL OCCULT BLOOD. THE ORDER IS READ BACK, VERIFIED. NOTED AND CARRIED OUT.
[2019-03-26] VITALS (13 sets, daily range): BP systolic 90–118; BP diastolic 46–99
[2019-03-26] MEDS: LORAZEPAM INJ 2 MG/ML VIAL IV PRN (02:07)
[2019-03-26 04:10] LABS: OCCULT BLOOD STOOL NEGATIVE (NEGATIVE)
[2019-03-26] MEDS: CHLORDIAZEPOXIDE HCL 25 MG CAPSULE PO SCH ×3 (05:58→17:25)
--- NOTE | 2019-03-26 06:39 | NUR ---
MS RN NOTES PT IN BED ASLEEP BUT EASILY AWOKEN VERBALLY OR BY TOUCH WITH SITTER AT BEDSIDE. PT A/O X1. RESPIRATIONS EVEN AND UNLABORED WITH NO S/S OF ACUTE DISTRESS OR SOB NOTED THROUGHOUT SHIFT. PT WITH RAC #20G PATENT AND INTACT AND SL. PT KEPT CLEAN, DRY, AND COMFORTABLE. PT NOTED WITH LEFT SHOULDER SLING ON AND HOB ELEVATED. SAFETY MEASURES IN PLACE WITH BED IN LOWEST LOCKED POSITION WITH SIDE RAILS UP X3 AND PADDED. CALL LIGHT WITHIN REACH. WILL ENDORSE TO ONCOMING NURSE FOR LISA.
[2019-03-26 07:04] LABS: BASOPHILS % (AUTO) 0.3 % (0.0-2.0); EOSINOPHILS % (AUTO) 0.8 % (0.0-6.0); HEMATOCRIT 21 % (39-51); HEMOGLOBIN 7.3 g/dL (13.5-17.5); LYMPHOCYTES # (AUTO) 0.5 /CMM (0.8-4.8); LYMPHOCYTES % (AUTO) 7.6 % (20.0-44.0); MEAN CORPUSCULAR HGB CONC 35 g/dl (31.0-36.0); MEAN CORPUSCULAR VOLUME 107 fL (80-96); MONOCYTES # (AUTO) 1.5 /CMM (0.1-1.30); MONOCYTES % (AUTO) 25.5 % (2.0-12.0); NEUTROPHILS # (AUTO) 3.9 /CMM (1.8-8.9); NEUTROPHILS % (AUTO) 65.8 % (43.0-81.0); WHITE BLOOD COUNT (AUTO) 5.9 K/uL (4.3-11.0)
[2019-03-26 07:07] LABS: CALCIUM, SERUM 7.9 mg/dL (8.5-10.1); CREATININE 0.8 mg/dL (0.6-1.3); MAGNESIUM 1.6 mg/dL (1.8-2.4); PHOSPHORUS 2.5 mg/dL (2.5-4.9); POTASSIUM 3.3 mmol/L (3.5-5.1)
[2019-03-26 07:12] LABS: PLATELET COUNT (AUTO) 39 /CMM (150-450); RED BLOOD CELL COUNT(AUTO) 1.98 MIL/uL (4.5-6.0)
--- NOTE | 2019-03-26 07:20 | NUR ---
RN OPENING NOTES RECEIVED PATIENT IN BED RESTING. PATIENT IS AWAKE. ALERT AND ORIENTED X2-3, EPISODES OF CONFUSION. IN ROOM AIR, NO SOB. RESPIRATION REGULAR AND UNLABORED. DENIES PAIN OR DISCOMFORT AT THIS TIME. IV ACCESS ON RAC G 20 INTACT AND PATENT,SALINE LOCKED. SLING ON LEFT SHOULDERS NOTED. MULTIPLE BRUISES ON SKIN, ALMOST 1/4 OF THE LEFT LATERAL SIDE OF THE BACK/SIDE HAS BRUISE. SEIZURE PRECAUTIONS AND SAFETY MEASURES IN PLACE. BED LOW AND LOCKED. SIDE RAILS UP X3 AND PADDED. SITTER AT THE BEDSIDE. WILL CONTINUE TO MONITOR ACCORDINGLY..
[2019-03-26 09:22] LABS: BAND % (MANUAL) 1 % (0.0-5.0); LYMPHOCYTES % (MANUAL) 3 % (16-48); MONOCYTES % (MANUAL) 17 % (0-11.0); NEUTROPHILS % (MANUAL) 79 (42-76)
[2019-03-26] MEDS: LEVETIRACETAM (250 MG) 250 MG TABLET PO SCH ×2 (09:38→17:25)
[2019-03-26] MEDS: THIAMINE HCL 100 MG TABLET PO SCH (09:39)
[2019-03-26] MEDS: FAMOTIDINE (20 MG) 20 MG TABLET PO SCH ×2 (09:39→21:11)
[2019-03-26] MEDS: PENTOXIFYLLINE 400 MG TABLET.SA PO SCH ×3 (09:39→17:24)
[2019-03-26] MEDS: SPIRONOLACTONE 25 MG TABLET PO SCH (09:39)
[2019-03-26] MEDS: FOLIC ACID 1 MG TABLET PO SCH (09:39)
[2019-03-26] MEDS: MULTIVITAMINS,THERAGRAN 1 UDTAB TABLET PO SCH (09:39)
[2019-03-26] MEDS: CLOTRIMAZOLE 1% 15 GM TUBE TP SCH ×2 (09:45→17:27)
[2019-03-26] MEDS: Z GUARD REMEDY 2 OZ OINT TP SCH (09:45)
[2019-03-26] MEDS ORDERED: POTASSIUM CHLORIDE 20 MEQ POWDER PACKET PO ONE (10:00)
[2019-03-26] MEDS ORDERED: POTASSIUM CHLORIDE 20 MEQ TAB.PRT.SR PO SCH (10:00)
[2019-03-26] MEDS: Magnesium 1GM/D5W 100ML PREMIX 100 ML IV SCH ×2 (12:03→13:09)
--- NOTE | 2019-03-26 16:13 | NUR ---
TRANSFUSING 1 UNIT PRBC. VSS. WILL MONIOTR ACCORDINGLY.
--- NOTE | 2019-03-26 17:00 | NUR ---
RN NOTES PATIENT VOIDED X1 Addendum: 03/27/19 at 0750 by CM PRICE WRONG TIME: VOIDED AT 1800
--- NOTE | 2019-03-26 17:30 | NUR ---
RN NOTES PATIENT HAS NOT VOID YET THE ENTIRE SHIFT. NOTIFIED DR MENEZES.
[2019-03-26] MEDS: ENSURE ENLIVE 237 ML LIQUID (VANILLA) PO SCH (17:32)
--- NOTE | 2019-03-26 18:30 | NUR ---
RN NOTES RECEIVED A CALL FROM [facility]".. THEY WILL DELIVER THE COAPTATION BRACE TOMORROW.
--- NOTE | 2019-03-26 19:20 | NUR ---
BLOOD TRANSFUSION ENEDED. 1 UNIT PRBC TRANSFUSED. NO ADVERSE REACTIONS NOTED. VS STABLE.
--- NOTE | 2019-03-26 19:30 | NUR ---
MS RN OPENING NOTES Received patient A/O x2-3, intermittently asleep on semi-Sharp's position on bed. On O2 via NC @ 2LPM, no SOB/respiratory distress noted. No s/sx of discomfort noted at this time. With disseminated bruises noted. With sling on L arm noted. Kept on bed clean, dry and comfortable. On fall and seizure precautions. With sitter at bedside. Call light within easy reach. Will continue to monitor accordingly.
--- NOTE | 2019-03-26 19:35 | NUR ---
RN CLOSING NOTES PATIENT IN STABLE CONDTION. ALL NEEDS ATTENDED AN DPROVIDED. ALL DUE MEDICATIONS GIVENM ORDERED. SEIZURE PRECAUTIONS AND SAFETY MEASURES IN PLACE. BED IN LOW/LOCKED POSITION, SIDERIALS UPX3 PADDED. CALL LIGHT IN REACH. SITTER AT BEDSIDE FOR SAFTETY. ENDORSED TO ANNALISA JJ FOR LISA. PLATELET TRANSFUSION ENDORSED TO ANNALISA JJ
--- NOTE | 2019-03-26 20:40 | NUR ---
MS RN NOTES Initiated platelet transfusion 1 unit as ordered. Verified with co-RN Chanel. V/S checked and recorded. Will continue to monitor accordingly.
--- NOTE | 2019-03-26 20:55 | NUR ---
MS RN NOTES Patient remained stable, no new complaints/unusualities noted. Increased platelet rate as indicated to consumed in 2 hrs as ordered. Will continue to monitor accordingly.
--- NOTE | 2019-03-26 22:40 | NUR ---
MS RN NOTES 1 unit platelet transfusion done. No ASE noted, will continue to monitor accordingly.
[2019-03-26] MEDS: IV D5/0.45 NACL 1,000 ML IV PRN (22:59)
[2019-03-27 06:34] LABS: BASOPHILS % (AUTO) 0.2 % (0.0-2.0); EOSINOPHILS % (AUTO) 0.2 % (0.0-6.0); HEMATOCRIT 27 % (39-51); HEMOGLOBIN 9.2 g/dL (13.5-17.5); LYMPHOCYTES # (AUTO) 0.5 /CMM (0.8-4.8); LYMPHOCYTES % (AUTO) 8.4 % (20.0-44.0); MEAN CORPUSCULAR HGB CONC 34 g/dl (31.0-36.0); MEAN CORPUSCULAR VOLUME 105 fL (80-96); MONOCYTES # (AUTO) 1.7 /CMM (0.1-1.30); MONOCYTES % (AUTO) 31.6 % (2.0-12.0); NEUTROPHILS # (AUTO) 3.2 /CMM (1.8-8.9); NEUTROPHILS % (AUTO) 59.6 % (43.0-81.0); RED BLOOD CELL COUNT(AUTO) 2.56 MIL/uL (4.5-6.0); WHITE BLOOD COUNT (AUTO) 5.4 K/uL (4.3-11.0)
--- NOTE | 2019-03-27 06:36 | NUR ---
MS RN CLOSING NOTES Patient intermittently asleep on bed, on O2 inhalation via NC @ 2LPM, no SOB/respiratory distress noted. No s/sx of discomfort noted at this time, patient denies pain. S/P 1 unit platelet (300ml) transfusion, no ASE noted. All nursing needs attended. Patient noted able to void in diaper x3 within the shift noted. All due meds given as ordered. Kept on bed clean, dry and comfortable. Call light within easy reach, on fall and seizures precautions. Endorsed to the next shift for LISA.
[2019-03-27 06:45] LABS: PLATELET COUNT (AUTO) 50 /CMM (150-450)
[2019-03-27 06:50] LABS: CALCIUM, SERUM 7.4 mg/dL (8.5-10.1); CREATININE 0.8 mg/dL (0.6-1.3); MAGNESIUM 1.5 mg/dL (1.8-2.4); PHOSPHORUS 1.1 mg/dL (2.5-4.9); POTASSIUM 3.3 mmol/L (3.5-5.1)
--- NOTE | 2019-03-27 07:40 | NUR ---
M/S RN NOTES PATIENT RESTING, AROUSABLE. ALERT AND ORIENTED X1-2. PATIENT IN NO RESPIRATORY DISTRESS, NO C/O PAIN AT THIS TIME. SKIN WARM TO TOUCH. PATIENT'S SHOULDER BRACE ON. IV ACCESS SITE INTACT AND PATENT. PATIENT'S NEEDS ATTENDED. BED ON LOWEST LOCKED POSITION, CALL LIGHT WITHIN REACH.
[2019-03-27 08:00] VITALS: BP 122/63
[2019-03-27] MEDS: SPIRONOLACTONE 25 MG TABLET PO SCH (08:37)
[2019-03-27] MEDS: FAMOTIDINE (20 MG) 20 MG TABLET PO SCH (08:37)
[2019-03-27] MEDS: LEVETIRACETAM (250 MG) 250 MG TABLET PO SCH ×2 (08:37→17:37)
[2019-03-27] MEDS: FOLIC ACID 1 MG TABLET PO SCH (08:37)
[2019-03-27] MEDS: CHLORDIAZEPOXIDE HCL 25 MG CAPSULE PO SCH ×2 (08:37→17:37)
[2019-03-27] MEDS: THIAMINE HCL 100 MG TABLET PO SCH (08:37)
[2019-03-27] MEDS: PENTOXIFYLLINE 400 MG TABLET.SA PO SCH ×3 (08:37→17:37)
[2019-03-27] MEDS: MULTIVITAMINS,THERAGRAN 1 UDTAB TABLET PO SCH (08:37)
[2019-03-27] MEDS: Z GUARD REMEDY 2 OZ OINT TP SCH (08:39)
[2019-03-27] MEDS: CLOTRIMAZOLE 1% 15 GM TUBE TP SCH ×2 (08:39→17:47)
[2019-03-27] MEDS: ENSURE ENLIVE 237 ML LIQUID (VANILLA) PO SCH ×2 (08:40→17:45)
[2019-03-27] MEDS: IV D5/0.45 NACL 1,000 ML IV PRN (08:58)
[2019-03-27 09:07] LABS: LYMPHOCYTES % (MANUAL) 5 % (16-48); MONOCYTES % (MANUAL) 35 % (0-11.0); NEUTROPHILS % (MANUAL) 60 (42-76)
[2019-03-27] MEDS: MORPHINE SULFATE INJ 4 MG/ML DISP.SYRIN IV PRN (09:07)
[2019-03-27] MEDS: Magnesium 1GM/D5W 100ML PREMIX 100 ML IV SCH ×2 (09:46→10:54)
[2019-03-27] MEDS ORDERED: POTASSIUM CHLORIDE 20 MEQ TAB.PRT.SR PO SCH (10:00)
[2019-03-27] MEDS ORDERED: Sodium Phosphate 30 MMOL in IV D5W 250 ML IV ONE (12:00)
[2019-03-27] MEDS: Sodium Phosphate 15 MMOL in IV D5W 250 ML IV SCH ×2 (12:46→17:25)
[2019-03-27] MEDS: LACTULOSE 10 G/15 ML UDC (PYXIS) PO SCH ×2 (13:26→17:37)
--- NOTE | 2019-03-27 15:27 | NUR ---
M/S RN NOTES PATIENT LEFT FOR CT SCAN. PATIENT RESTING IN BED BUT AROUSABLE. NO RESPIRATORY DISTRESS. PATIENT ON NASAL CANULA O2 AT 2LPM.
--- NOTE | 2019-03-27 16:56 | NUR ---
M/S RN NOTES INFORMED DR. FULTON FOR PT/INR AND PTT RESULTS ORDERED 1 DOSE OF VIT K 10MG SQ. ORDER CARRIED OUT.
[2019-03-27] MEDS ORDERED: PHYTONADIONE INJ 10 MG/1 ML AMPUL SQ ONE (17:00)
--- NOTE | 2019-03-27 18:45 | NUR ---
M/S RN NOTES PATIENT RESTING, LYING IN BED, NO RESPIRATORY DISTRESS, NO S/S OF PAIN AT THIS TIME. SITTER AT BEDSIDE. SKIN WARM TO TOUCH. KAUR BRACE INTACT ON THE LEFT ARM. IV ACCESS SITE INTACT AND PATENT. PATIENT'S NEEDS ATTENDED. BED ON LOWEST LOCKED POSITION, CALL LIGHT WITHIN REACH. WILL ENDORSE TO ONCOMING NURSE.
--- NOTE | 2019-03-27 19:20 | NUR ---
MS/RN NOTES RECEIVED PT. LYING IN BED. PT. IS AWAKE, ALERT AND ORIENTED TO SELF. BREATHING EVEN AND UNLABORED ON ROOM AIR. NO SOB, RESPIRATORY DISTRESS OR COMPLAINTS OF PAIN NOTED AT THIS TIME. PT. WITH KAUR BRACE PRESENT AND INTACT ON LEFT UPPER ARM. PT. WITH RIGHT AC 20 GAUGE PERIPHERAL IV PRESENT, PATENT AND INTACT. PT. WITH 1:1 SITTER PRESENT AT BEDSIDE. SEIZURE, SAFETY AND ASPIRATION PRECAUTIONS IMPLEMENTED AND IN PLACE. BED LOCKED AND IN LOWEST POSITION, SIDE RAILS UP X3. BED ALARM ON, CALL LIGHT WITHIN REACH, WILL CONTINUE TO MONITOR.
[2019-03-27 20:00] VITALS: BP 117/57
[2019-03-28] MEDS: FAMOTIDINE/PF INJ 20 MG/2 ML VIAL IV SCH ×3 (00:17→20:58)
[2019-03-28 06:27] LABS: BASOPHILS % (AUTO) 0.3 % (0.0-2.0); EOSINOPHILS % (AUTO) 0.4 % (0.0-6.0); HEMATOCRIT 29 % (39-51); HEMOGLOBIN 9.9 g/dL (13.5-17.5); LYMPHOCYTES # (AUTO) 0.7 /CMM (0.8-4.8); LYMPHOCYTES % (AUTO) 9.9 % (20.0-44.0); MEAN CORPUSCULAR HGB CONC 34 g/dl (31.0-36.0); MEAN CORPUSCULAR VOLUME 105 fL (80-96); MONOCYTES # (AUTO) 2.3 /CMM (0.1-1.30); MONOCYTES % (AUTO) 31.8 % (2.0-12.0); NEUTROPHILS # (AUTO) 4.1 /CMM (1.8-8.9); NEUTROPHILS % (AUTO) 57.6 % (43.0-81.0); RED BLOOD CELL COUNT(AUTO) 2.76 MIL/uL (4.5-6.0); WHITE BLOOD COUNT (AUTO) 7.1 K/uL (4.3-11.0)
[2019-03-28 06:38] LABS: PLATELET COUNT (AUTO) 38 /CMM (150-450)
[2019-03-28 06:51] LABS: CALCIUM, SERUM 7.4 mg/dL (8.5-10.1); CREATININE 0.7 mg/dL (0.6-1.3); MAGNESIUM 1.8 mg/dL (1.8-2.4); PHOSPHORUS 2.8 mg/dL (2.5-4.9); POTASSIUM 3.1 mmol/L (3.5-5.1)
--- NOTE | 2019-03-28 06:55 | NUR ---
MS/RN NOTES PT. IS LYING IN BED RESTING. BREATHING EVEN AND UNLABORED ON ROOM AIR. NO SOB, RESPIRATORY DISTRESS OR COMPLAINTS OF PAIN NOTED AT THIS TIME. PT. WITH KAUR BRACE PRESENT AND INTACT ON LEFT UPPER ARM. PT. WITH LEFT FOREARM 20 GAUGE PERIPHERAL IV PRESENT, PATENT AND INTACT. PT. WITH 1:1 SITTER PRESENT AT BEDSIDE. ALL PT. NEEDS MET. SEIZURE, SAFETY AND ASPIRATION PRECAUTIONS IMPLEMENTED AND IN PLACE. BED LOCKED AND IN LOWEST POSITION, SIDE RAILS UP X3. BED ALARM ON, CALL LIGHT WITHIN REACH, WILL ENDORSE TO DAYSIAFT NURSE FOR CONTINUITY OF CARE.
[2019-03-28] MEDS ORDERED: POTASSIUM CHLORIDE 20 MEQ TAB.PRT.SR PO ONE (07:30)
--- NOTE | 2019-03-28 07:55 | NUR ---
MS RN NOTES PATIENT RECEIVED RESTING INSIDE ROOM. AWAKE, LETHARGIC, ORIENTED TO SELF. NO ACUTE DISTRESS. NO C/O PAIN OR DISCOMFORT. NO FACIAL GRIMACE NOTED. BRACE NOTED ON LEFT UPPER ARM. WOUND DRESSING NOTED ON LFA INTACT. SITTER AT BEDSIDE. SAFETY PRECAUTIONS IN PLACE. WILL CONTINUE TO MONITOR. BED LOCKED AND IN LOW POSITION. BILATERAL UPPER SIDE RAILS UP AND LOCKED. CALL LIGHT WITHIN EASY REACH
[2019-03-28 08:00] VITALS: BP 120/66
[2019-03-28 08:03] LABS: BAND % (MANUAL) 5 % (0.0-5.0); LYMPHOCYTES % (MANUAL) 4 % (16-48); MONOCYTES % (MANUAL) 33 % (0-11.0); NEUTROPHILS % (MANUAL) 58 (42-76)
[2019-03-28] MEDS: IV D5/0.45 NACL 1,000 ML IV PRN (08:50)
[2019-03-28] MEDS ORDERED: POTASSIUM CHLORIDE 20 MEQ TAB.PRT.SR PO SCH (09:30)
--- NOTE | 2019-03-28 09:35 | NUR ---
MS RN NOTES PATIENT SEEN BY ST FOR SWALLOW EVAL. CLEARED BY ST TO HAVE PO MEDS, PATIENT TOLERATED SWALLOWING APPLE SAUCE. WILL CRUSH MEDICATIONS, TO BE MIXED WITH APPLE SAUCE
[2019-03-28] MEDS: SPIRONOLACTONE 25 MG TABLET PO SCH (09:51)
[2019-03-28] MEDS: FOLIC ACID 1 MG TABLET PO SCH (09:51)
[2019-03-28] MEDS: LACTULOSE 10 G/15 ML UDC (PYXIS) PO SCH ×2 (09:51→17:09)
[2019-03-28] MEDS: THIAMINE HCL 100 MG TABLET PO SCH (09:51)
[2019-03-28] MEDS: PENTOXIFYLLINE 400 MG TABLET.SA PO SCH ×3 (09:52→16:34)
[2019-03-28] MEDS: CHLORDIAZEPOXIDE HCL 25 MG CAPSULE PO SCH ×2 (09:52→16:38)
[2019-03-28] MEDS: MULTIVITAMINS,THERAGRAN 1 UDTAB TABLET PO SCH (09:52)
[2019-03-28] MEDS: LEVETIRACETAM (250 MG) 250 MG TABLET PO SCH ×2 (09:53→16:39)
[2019-03-28] MEDS: Z GUARD REMEDY 2 OZ OINT TP SCH (09:53)
[2019-03-28] MEDS: ENSURE ENLIVE 237 ML LIQUID (VANILLA) PO SCH ×2 (09:53→17:09)
[2019-03-28] MEDS: CLOTRIMAZOLE 1% 15 GM TUBE TP SCH ×2 (09:55→17:11)
--- NOTE | 2019-03-28 10:36 | NUR ---
WOUND CARE CONSULT: PT SEEN FOR SKIN TEAR TO LEFT FOREARM. PT NOTED TO HAVE PROFOUND WEEPING EDEMA TO LEFT ARM WITH DISCOLORATION. RECOMMENDATIONS MADE FOR WOUND CARE AND SKIN PROTECTION. DISCUSSED WITH NURSING STAFF. LEFT ARM ELEVATED ON PILLOW. WILL SEE PRN. OSORIO IN AGREEMENT WITH PLAN OF CARE. Addendum: 03/28/19 at 1037 by SERVANDO KWONG WNDNU Amended: Links added.
--- NOTE | 2019-03-28 10:45 | NUR ---
MS RN NOTES CONDOM CATH PLACED ON PATIENT
[2019-03-28 11:15] VITALS: BP 116/67
--- NOTE | 2019-03-28 11:28 | NUR ---
MS RN NOTES PATIENT NOTED WITH SOB, WITH O2 SAT OF 81. PLACED PATIENT TO 6L/MIN O2 VIA FACE MASK, O2 UP TO 92%. NOTED PATIENT WITH INCREASED SECRETIONS AND COUGH, ORAL SUCTION DONE. NOTIFIED DR MENEZES. WITH NEW ORDERS TO TRANSFER PATIENT TO [facility], ORTHOPAEDIC GENERAL PLACED, SR 97. ALSO WITH NEW ORDERS FOR STAT ABG AND STAT CHEST XRAY. ORDERS NOTED AND CARRIED OUT. RADIOLOGY AND RT MADE AWARE. WILL CONTINUE TO MONITOR
--- NOTE | 2019-03-28 11:34 | NUR ---
PIER WORKER NOTES RT AT BEDSIDE FOR ABG
[2019-03-28 11:46] LABS: ABG BASE EXCESS -2.3 mmol/L; ABG OXYGEN SATURATION 93.9 % (92.0-98.5); ABG PCO2 32.3 mmHg (35.0-45.0); ABG PH 7.436 (7.350-7.450); ABG PO2 71.8 mmHg (75.0-100.0); AaDO2 205.1 mmHg; MetHb 0.7 % (0.0-1.5); O2Hb 92.3 % (94.0-97.0); SITE, ABG Right Brachial; VENT MODE, BG SIMPLE MASK
[2019-03-28] MEDS ORDERED: ZOSYN IVPB 3.375 G in IV D5W 50ml IV ONE (13:00)
--- NOTE | 2019-03-28 13:12 | NUR ---
BACTERIOLOGIST MEDICAL NOTES URINE COLLECTED AND SENT TO LAB
[2019-03-28 14:09] LABS: BILIRUBIN,URINE LARGE (NEGATIVE); BLOOD, URINE NEGATIVE Ery/uL (NEGATIVE); COLOR,URINE AMBER (YELLOW); KETONES,URINE NEGATIVE (NEGATIVE); LEUKOCYTE ESTERASE ,URINE SMALL (NEGATIVE); NITRITE, URINE POSITIVE (NEGATIVE); PROTEIN,URINE NEGATIVE (NEGATIVE); UGLUCOSE 100 MG/DL mg/dL (NEGATIVE); UROBILINOGEN,URINE >=8.0 EU/dL (0.2)
[2019-03-28 14:38] LABS: APPEARANCE,URINE SLIGHTLY CLOUDY (CLEAR)
[2019-03-28 14:39] LABS: RBC,URINE 0-2 /HPF (0-2); WBC,URINE 51-80 /HPF (0-3)
[2019-03-28 14:40] LABS: BACTERIA,URINE Moderate /HPF (None Seen); SQUAMOUS EPITHELIAL CELL,UR Few /HPF (None Seen); YEAST,URINE Few /HPF (None Seen)
[2019-03-28 16:27] VITALS: BP 109/57
--- NOTE | 2019-03-28 17:35 | NUR ---
ELEMENTARY SCHOOL DIRECTOR NOTES PATIENT SEEN AND EXAMINED BY DR AMBIKA KEMP. VERBALIZED THAT HE WILL REVIEW PATIENT'S MEDICATIONS. NO FURTHER ORDERS RECEIVED AT THIS TIME. WILL CONTINUE TO MONITOR
--- NOTE | 2019-03-28 19:05 | NUR ---
INVASIVE CARDIOLOGIST NOTES PATIENT RESTING INSIDE ROOM. CONTINUE TO NOTE WITH LETHARGIC EPISODES, DR MENEZES AWARE. NO ACUTE DISTRESS AT THIS TIME. NO C/O PAIN OR DISCOMFORT. CONDOM CATH IN PLACE WITH BRYAN-COLORED URINE OUTPUT ON COLLECTING BAG. KAUR BRACE ON HUSAM IN PLACE. CONTINUE ON TELEMETRY, ST 101. SAFETY PRECAUTIONS IN PLACE. SITTER AT BEDSIDE. WILL ENDORSE TO INCOMING SHIFT FOR LISA. BED LOCKED AND IN LOW POSITION. BILATERAL UPPER SIDE RAILS UP AND LOCKED. CALL LIGHT WITHIN EASY REACH
--- NOTE | 2019-03-28 19:17 | NUR ---
MS/RN NOTES RECEIVED PT. LYING IN BED. PT. IS AWAKE, ALERT AND ORIENTED TO SELF. BREATHING EVEN AND UNLABORED ON 3LPM O2 VIA NC. NO SOB, RESPIRATORY DISTRESS OR COMPLAINTS OF PAIN NOTED AT THIS TIME. PT. WITH KAUR BRACE PRESENT AND INTACT ON LEFT UPPER ARM. PT. WITH RIGHT FOREARM 20 GAUGE PERIPHERAL IV PRESENT, PATENT AND INTACT. PT. WITH 1:1 SITTER PRESENT AT BEDSIDE. SEIZURE, SAFETY AND ASPIRATION PRECAUTIONS IMPLEMENTED AND IN PLACE. BED LOCKED AND IN LOWEST POSITION, SIDE RAILS UP X3. BED ALARM ON, CALL LIGHT WITHIN REACH, WILL CONTINUE TO MONITOR.
[2019-03-28 20:00] VITALS: BP 117/56
[2019-03-28] MEDS: PIPERACILLIN /TAZOBACTAM 3.375 G in IV D5W 100 ML IV SCH (20:59)
[2019-03-29] VITALS (7 sets, daily range): BP systolic 108–137; BP diastolic 49–65
[2019-03-29] MEDS: PIPERACILLIN /TAZOBACTAM 3.375 G in IV D5W 100 ML IV SCH ×3 (04:57→20:05)
[2019-03-29 06:27] LABS: BASOPHILS % (AUTO) 0.6 % (0.0-2.0); EOSINOPHILS % (AUTO) 1.5 % (0.0-6.0); HEMATOCRIT 31 % (39-51); HEMOGLOBIN 10.5 g/dL (13.5-17.5); LYMPHOCYTES # (AUTO) 0.8 /CMM (0.8-4.8); LYMPHOCYTES % (AUTO) 12.9 % (20.0-44.0); MEAN CORPUSCULAR HGB CONC 34 g/dl (31.0-36.0); MEAN CORPUSCULAR VOLUME 106 fL (80-96); MONOCYTES # (AUTO) 1.9 /CMM (0.1-1.30); MONOCYTES % (AUTO) 28.8 % (2.0-12.0); NEUTROPHILS # (AUTO) 3.7 /CMM (1.8-8.9); NEUTROPHILS % (AUTO) 56.2 % (43.0-81.0); RED BLOOD CELL COUNT(AUTO) 2.94 MIL/uL (4.5-6.0); WHITE BLOOD COUNT (AUTO) 6.5 K/uL (4.3-11.0)
[2019-03-29 06:39] LABS: PLATELET COUNT (AUTO) 44 /CMM (150-450)
[2019-03-29 06:57] LABS: CALCIUM, SERUM 7.7 mg/dL (8.5-10.1); CREATININE 0.7 mg/dL (0.6-1.3); MAGNESIUM 1.8 mg/dL (1.8-2.4); PHOSPHORUS 1.6 mg/dL (2.5-4.9); POTASSIUM 3.2 mmol/L (3.5-5.1)
--- NOTE | 2019-03-29 06:59 | NUR ---
MS/RN NOTES PT. IS LYING IN BED RESTING. BREATHING EVEN AND UNLABORED ON 3LPM O2 VIA NC. NO SOB, RESPIRATORY DISTRESS OR COMPLAINTS OF PAIN NOTED AT THIS TIME. PT. WITH KAUR BRACE PRESENT AND INTACT ON LEFT UPPER ARM. PT. WITH RIGHT FOREARM 20 GAUGE PERIPHERAL IV PRESENT, PATENT AND INTACT. ALL PT. NEEDS MET. PT. OFFLOADED, TURNED AND REPOSITIONED Q2H AND NEEDED. PT. WITH 1:1 SITTER PRESENT AT BEDSIDE. SEIZURE, SAFETY AND ASPIRATION PRECAUTIONS IMPLEMENTED AND IN PLACE. BED LOCKED AND IN LOWEST POSITION, SIDE RAILS UP X3. BED ALARM ON, CALL LIGHT WITHIN REACH, WILL ENDORSE TO DAYSHIFT NURSE FOR CONTINUITY OF CARE.
[2019-03-29 07:47] LABS: EOSINOPHILS % (MANUAL) 2 % (0-4); LYMPHOCYTES % (MANUAL) 10 % (16-48); MONOCYTES % (MANUAL) 28 % (0-11.0); NEUTROPHILS % (MANUAL) 60 (42-76)
--- NOTE | 2019-03-29 07:47 | NUR ---
M/S RN NOTES PATIENT RECEIVED RESTING IN BED. NO SIGNS OF PAIN OR COMPLAINTS. CURRENTLY ON 3L [id number] CANULA, BREATHING UNLABORED AND NO SIGNS OF RESPIRATORY DISTRESS. BED LOCKED IN LOWEST POSITION SIDE RAILS UP X3 AND WITH 1:1 SITTER AT BEDSIDE. WILL CONTINUE TO MONITOR AND CONTINUE CARE.
--- NOTE | 2019-03-29 07:50 | NUR ---
ART PSYCHOTHERAPIST OR THERAPIST NOTES PATIENT REMAINS ON TELEMETRY, INSPECTION CLERK IN PLACE. SR 80'S. CONDOM CATHETER IN PLACE WITH BRYAN COLORED URINE OUTPUT NOTED ON COLLECTING BAG. MAINTAINED ASPIRATION PRECAUTIONS.WILL CONTINUE TO MONITOR.
[2019-03-29] MEDS: FOLIC ACID 1 MG TABLET PO SCH (09:01)
[2019-03-29] MEDS: CHLORDIAZEPOXIDE HCL 25 MG CAPSULE PO SCH ×2 (09:01→17:16)
[2019-03-29] MEDS: SPIRONOLACTONE 25 MG TABLET PO SCH (09:01)
[2019-03-29] MEDS: PENTOXIFYLLINE 400 MG TABLET.SA PO SCH ×3 (09:01→17:16)
[2019-03-29] MEDS: MULTIVITAMINS,THERAGRAN 1 UDTAB TABLET PO SCH (09:01)
[2019-03-29] MEDS: THIAMINE HCL 100 MG TABLET PO SCH (09:01)
[2019-03-29] MEDS: LACTULOSE 10 G/15 ML UDC (PYXIS) PO SCH ×2 (09:01→17:16)
[2019-03-29] MEDS: FAMOTIDINE/PF INJ 20 MG/2 ML VIAL IV SCH ×2 (09:02→20:08)
[2019-03-29] MEDS: LEVETIRACETAM (250 MG) 250 MG TABLET PO SCH ×2 (09:02→17:16)
[2019-03-29] MEDS: CLOTRIMAZOLE 1% 15 GM TUBE TP SCH ×2 (09:04→17:18)
[2019-03-29] MEDS: Z GUARD REMEDY 2 OZ OINT TP SCH (09:05)
[2019-03-29] MEDS: ENSURE ENLIVE 237 ML LIQUID (VANILLA) PO SCH ×2 (09:06→17:42)
--- NOTE | 2019-03-29 09:40 | NUR ---
CHILD SUPPORT OFFICER NOTES PATIENT NOTED WITH PRODUCTIVE COUGH. ENCOURAGED INCREASED COUGHING, PATIENT ABLE TO FOLLOW INSTRUCTIONS. ORAL SUCTION DONE, ABLE TO SUCTION THICK SECRETIONS. NO FURTHER DISTRESS NOTED. PATIENT ABLE TO SWALLOW LIQUIDS/MEDICATIONS WITHOUT EPISODE OF COUGHING. MAINTAINED ASPIRATION PRECAUTION. SITTER AT BEDSIDE. WILL CONTINUE TO MONITOR
[2019-03-29] MEDS: POTASSIUM CHLORIDE 20 MEQ POWDER PACKET PO SCH ×2 (12:08→12:40)
[2019-03-29] MEDS ORDERED: K PHOS NEUTRAL 250 MG TABLET PO ONE (12:30)
[2019-03-29] MEDS ORDERED: ACETAMINOPHEN 325 MG TABLET PO PRN (16:00)
--- NOTE | 2019-03-29 18:48 | NUR ---
NAVAL INSPECTOR NOTES PATIENT IS CURRENTLY RESTING IN BED A/O x1 AND LETHARGIC. CLINICAL TRIAL HEAD IN PLACE SR 98. PATIENT IS ON 3L NASAL CANULA. PATIENT HAS PRODUCTIVE COUGH WITH SECRETION AND NEEDS SUCTION PRN. LEFT SHOULDER FRACTURE WITH BRUISING AND BRACE PLACED. CONDOM CATHETER IN PLACE WITH BRYAN COLORED URINE. PUREED DIET FOR PATIENT AND MAINTAIN ASPIRATION PRECAUTION. IV ON R AC #20. PATIENT WAS KEPT CLEAN AND DRY AND REPOSITION TO COMFORT EVERY 2 HOURS. WILL CONTINUE TO MONITOR AND ENDORSE LISA TO ONCOMING NURSE.
[2019-03-29] MEDS: IV D5/0.45 NACL 1,000 ML IV PRN (18:54)
--- NOTE | 2019-03-29 18:54 | NUR ---
SENIOR TELLER NOTES PATIENT TRANSFERRED TO ROOM 327, BED 1. TRANSFERRED VIA HOSPITAL BED. NO ACUTE DISTRESS. PATIENT TOLERATED TRANSFER WELL. WILL CONTINUE TO MONITOR
--- NOTE | 2019-03-29 19:05 | NUR ---
INFORMATICS SPEC OPENING NOTES RECEIVED PATIENT IN BED, SLEEPING, APPEARS COMFORTABLE. BREATHING EVEN AND UNLABORED. NOT IN ANY DISTRESS. ON SUPPLEMENTAL O2 AT 3LPM VIA NASAL CANNULA. PERIPHERAL IV INFUSING AT 125ML/HR. BRACE ON R) SHOULDER IN PLACE. CONDOM CATHETER IN PLACE DRAINING WELL. SAFETY MEASURES IN PLACE; 1:1 SITTER AT BEDSIDE, CALL LIGHT WITHIN REACH, BED IN LOW, LOCKED POSITION. WILL CONTINUE TO MONITOR ACCORDINGLY
[2019-03-30] VITALS (9 sets, daily range): BP systolic 118–139; BP diastolic 58–85
[2019-03-30] MEDS: PIPERACILLIN /TAZOBACTAM 3.375 G in IV D5W 100 ML IV SCH ×2 (04:10→12:20)
--- NOTE | 2019-03-30 06:35 | NUR ---
TAFE TEACHER CLOSING NOTES PATIENT IS CURRENTLY RESTING IN BED, A/O x1 AND LETHARGIC. TELE MONITOR IN PLACE- SINUS RHYTHM 82. PATIENT IS ON SUPPLEMENTAL O2 AT 3L VIA NASAL CANNULA. LEFT SHOULDER FRACTURE WITH BRUISING AND BRACE IN PLACE. CONDOM CATHETER IN PLACE, DRAINING BRYAN COLORED URINE. IV ON R AC #20, INTACT AND PATENT- CURRENTLY INFUSING IV ZOSYN AT 25ML/HR. KEPT CLEAN AND DRY. REPOSITIONED EVERY 2 HOURS. WILL ENDORSE LISA TO ONCOMING NURSE.
--- NOTE | 2019-03-30 07:30 | NUR ---
STUDENT EDUCATION SPECIALIST NOTES PT IN BED, LETHARGIC, ALERT AND AND RESPONSIVE WHEN NAME IS CALLED, NOT IN DISTRESS, SITTER AT BEDSIDE,SAFETY PRECAUTIONS OBSERVED, KEPT COMFORTABLE IN BED.
[2019-03-30 07:32] LABS: HEMATOCRIT 31 % (39-51); HEMOGLOBIN 10.4 g/dL (13.5-17.5); LYMPHOCYTES # (AUTO) 0.5 /CMM (0.8-4.8); LYMPHOCYTES % (AUTO) 13.4 % (20.0-44.0); MEAN CORPUSCULAR HGB CONC 33 g/dl (31.0-36.0); MEAN CORPUSCULAR VOLUME 106 fL (80-96); MONOCYTES % (AUTO) 23.5 % (2.0-12.0); NEUTROPHILS # (AUTO) 2.4 /CMM (1.8-8.9); NEUTROPHILS % (AUTO) 59.1 % (43.0-81.0); RED BLOOD CELL COUNT(AUTO) 2.95 MIL/uL (4.5-6.0)
[2019-03-30 07:52] LABS: CALCIUM, SERUM 7.8 mg/dL (8.5-10.1); CREATININE 0.7 mg/dL (0.6-1.3); MAGNESIUM 1.7 mg/dL (1.8-2.4); PHOSPHORUS 1.9 mg/dL (2.5-4.9); POTASSIUM 3.4 mmol/L (3.5-5.1)
[2019-03-30 08:02] LABS: PLATELET COUNT (AUTO) 50 /CMM (150-450)
[2019-03-30 08:35] LABS: BAND % (MANUAL) 6 % (0.0-5.0); EOSINOPHILS % (MANUAL) 4 % (0-4); LYMPHOCYTES % (MANUAL) 9 % (16-48); MONOCYTES % (MANUAL) 23 % (0-11.0); NEUTROPHILS % (MANUAL) 58 (42-76)
[2019-03-30] MEDS: FAMOTIDINE/PF INJ 20 MG/2 ML VIAL IV SCH ×2 (09:13→20:45)
[2019-03-30] MEDS: LACTULOSE 10 G/15 ML UDC (PYXIS) PO SCH ×2 (09:57→16:17)
[2019-03-30] MEDS: CHLORDIAZEPOXIDE HCL 25 MG CAPSULE PO SCH ×2 (09:57→16:17)
[2019-03-30] MEDS: MULTIVITAMINS,THERAGRAN 1 UDTAB TABLET PO SCH (09:57)
[2019-03-30] MEDS: PENTOXIFYLLINE 400 MG TABLET.SA PO SCH ×3 (09:57→16:17)
[2019-03-30] MEDS: FOLIC ACID 1 MG TABLET PO SCH (09:58)
[2019-03-30] MEDS: THIAMINE HCL 100 MG TABLET PO SCH (09:58)
[2019-03-30] MEDS: SPIRONOLACTONE 25 MG TABLET PO SCH (09:58)
[2019-03-30] MEDS: LEVETIRACETAM (250 MG) 250 MG TABLET PO SCH ×2 (09:58→16:17)
[2019-03-30] MEDS: Z GUARD REMEDY 2 OZ OINT TP SCH (10:00)
[2019-03-30] MEDS: CLOTRIMAZOLE 1% 15 GM TUBE TP SCH ×2 (10:00→17:31)
[2019-03-30] MEDS: ENSURE ENLIVE 237 ML LIQUID (VANILLA) PO SCH ×2 (10:09→17:31)
[2019-03-30] MEDS: Magnesium 1GM/D5W 100ML PREMIX 100 ML IV SCH ×2 (10:13→11:15)
[2019-03-30] MEDS ORDERED: POTASSIUM CHLORIDE 20 MEQ TAB.PRT.SR PO SCH (10:30)
[2019-03-30] MEDS ORDERED: K PHOS NEUTRAL 250 MG TABLET PO ONE (12:30)
[2019-03-30] MEDS ORDERED: LACT10SO6 PO (14:39)
[2019-03-30] MEDS ORDERED: LACT-246 PO (14:39)
[2019-03-30] MEDS ORDERED: ACET325T53 PO (14:39)
[2019-03-30] MEDS: IV D5/0.45 NACL 1,000 ML IV PRN (17:54)
--- NOTE | 2019-03-30 19:00 | NUR ---
TAILOR HELPER NOTES PT IN BED, ASLEEP, EASY TO AROUSE, LETHARGIC, VERBALLY RESPONSIVE WHEN NAME IS CALLED, NO FACIAL GRIMACING OR MOANING, IV FLUIDS INFUSING WELL, CALL LIGHT WITHIN REACH, KEPT CLEAN AND COMFORTABLE, SEEN BY DR. BOCANEGRA TODAY, PLAN FOR DISCHARGE TO SNF TOMORROW.
--- NOTE | 2019-03-30 19:05 | NUR ---
TRAVERTINE INSTALLER OPENING NOTES RECEIVED PATIENT IN BED, ASLEEP, EASY TO AROUSE. RESPONSIVE TO NAME. BREATHING EVEN AND UNLABORED. NOT IN ANY DISTRESS, ON ROOM AIR. TELE MONITOR IN PLACE- SINUS RHYTHM 97. PERIPHERAL IV INFUSING AT 125ML/HR. CONDOM CATHETER IN PLACE. SEIZURE PRECAUTIONS MAINTAINED. SAFETY MEASURES IN PLACE, CALL LIGHT WITHIN REACH. BED IN OW, LOCKED POSITION. WILL CONTINUE TO MONITOR ACCORDINGLY
[2019-03-31] VITALS: BP 120/63
[2019-03-31] MEDS: IV D5/0.45 NACL 1,000 ML IV PRN ×2 (02:15→09:23)
[2019-03-31 04:00] VITALS: BP 117/95
[2019-03-31 04:31] VITALS: BP 117/75
[2019-03-31 07:13] LABS: CALCIUM, SERUM 7.9 mg/dL (8.5-10.1); CREATININE 0.6 mg/dL (0.6-1.3); MAGNESIUM 1.8 mg/dL (1.8-2.4); PHOSPHORUS 1.4 mg/dL (2.5-4.9); POTASSIUM 3.5 mmol/L (3.5-5.1)
--- NOTE | 2019-03-31 07:16 | NUR ---
ART SPECIALIST CLOSING NOTES PATIENT IS CURRENTLY RESTING IN BED, A/O x1 AND LETHARGIC. TELE MONITOR IN PLACE- SINUS RHYTHM 90. PATIENT IS ON SUPPLEMENTAL O2 AT 3L VIA NASAL CANNULA. LEFT SHOULDER FRACTURE WITH BRUISING AND BRACE IN PLACE. CONDOM CATHETER IN PLACE, DRAINING BRYAN COLORED URINE. IV ON R AC #20, INTACT AND PATENT, INFUSING NS AT 125ML/HR. KEPT CLEAN AND DRY. REPOSITIONED EVERY 2 HOURS. ENDORSED LISA TO ONCOMING NURSE.
[2019-03-31 07:23] LABS: FERRITIN 344 ng/mL (8-388)
[2019-03-31 07:24] LABS: IRON, SERUM 32 ug/dl (50-175); TOTAL IRON BINDING CAPACITY 90 ug/dl (250-450)
--- NOTE | 2019-03-31 07:30 | NUR ---
COLOR MIXER OPENING NOTES RECEIVED PATIENT IN BED RESTING COMFORTABLY IN MODERATE HIGH BACK REST. NOT IN ANY SIGNS OF DISTRESS NOTED AT THIS TIME. ON OXYGEN 3LPM VIA NC. NO SOB NOTED AT THIS TIME. ON TELE MONITOR WITH CURRENT READING OF SINUS RHYTHM WITH HR IN 90'S. PERIPHERAL IV INFUSING AT 125ML/HR. CONDOM CATHETER IN PLACE. SAFETY MEASURES IN PLACE, CALL LIGHT WITHIN REACH. BED IN OW, LOCKED POSITION. WILL CONTINUE TO MONITOR.
[2019-03-31 08:00] VITALS: BP 126/74
[2019-03-31] MEDS: THIAMINE HCL 100 MG TABLET PO SCH (08:42)
[2019-03-31] MEDS: FAMOTIDINE/PF INJ 20 MG/2 ML VIAL IV SCH (08:42)
[2019-03-31] MEDS: FOLIC ACID 1 MG TABLET PO SCH (08:42)
[2019-03-31] MEDS: LACTULOSE 10 G/15 ML UDC (PYXIS) PO SCH (08:42)
[2019-03-31] MEDS: MULTIVITAMINS,THERAGRAN 1 UDTAB TABLET PO SCH (08:42)
[2019-03-31] MEDS: CHLORDIAZEPOXIDE HCL 25 MG CAPSULE PO SCH (08:42)
[2019-03-31] MEDS: SPIRONOLACTONE 25 MG TABLET PO SCH (08:42)
[2019-03-31] MEDS: PENTOXIFYLLINE 400 MG TABLET.SA PO SCH ×2 (08:42→12:12)
[2019-03-31] MEDS: ENSURE ENLIVE 237 ML LIQUID (VANILLA) PO SCH ×2 (08:42→12:12)
[2019-03-31] MEDS: LEVETIRACETAM (250 MG) 250 MG TABLET PO SCH (08:44)
[2019-03-31] MEDS: Z GUARD REMEDY 2 OZ OINT TP SCH (08:58)
[2019-03-31] MEDS: CLOTRIMAZOLE 1% 15 GM TUBE TP SCH (08:58)
[2019-03-31] MEDS ORDERED: NEUTRA PHOS 1 POWD.PACKET NG ONE (09:00)
--- NOTE | 2019-03-31 13:30 | NUR ---
RN NOTES REPORT GIVEN TO ANNALISA MERCHANT FROM [facility].
--- NOTE | 2019-03-31 13:49 | NUR ---
FAMILY PRESERVATION CASEWORKER NOTES PATIENT DISCHARGED IN STABLE CONDITION. A/O X 1. V/S TAKEN, STABLE AND RECORDED. PATIENT'S IV ACCESS REMOVED AND APPLIED PRESSURE DRESSING. ALL SKIN ISSUES TAKEN PICTURES AND FILED ON CHART. NAME ARM BAND REMOVED. ALL BELONGINGS CHECKED AND SIGNED. HEALTH TEACHINGS.DISCHARGED INSTRUCTIONS GIVEN. PATIENT LEFT UNIT WITH 2 AMBULANCE STAFF VIA [employer]. PATIENT IN NO SIGNS OF ACUTE DISTRESS. CHARGE NURSE AWARE OF DISCHARGE.
[2019-03-31] MEDS ORDERED: FERROUS SULFATE (325 MG) 325 MG/TAB TABLET PO SCH (17:00)
== END 2019-03-31 13:40 | DRG 280 ==
LOC: TELE 19:41 → MED 03-23 08:21 → TELE 03-28 11:30 → MED 03-31 11:24
PROVIDERS: ADMIT Internal Medicine
PROC: 30233R1 Transfusion of Nonautologous Platelets into Peripheral Vein, Percutaneous Approach (ICD-10-PCS; principal; 2019-03-23)
PROC: 30233N1 Transfusion of Nonautologous Red Blood Cells into Peripheral Vein, Percutaneous Approach (ICD-10-PCS; 2019-03-24)
DX: K70.40 Alcoholic hepatic failure without coma (principal); E43 Unspecified severe protein-calorie malnutrition; D61.818 Other pancytopenia; D69.6 Thrombocytopenia, unspecified; E83.42 Hypomagnesemia; E83.39 Other disorders of phosphorus metabolism; S42.202A Unspecified fracture of upper end of left humerus, initial encounter for closed fracture; E88.09 Other disorders of plasma-protein metabolism, not elsewhere classified; G40.909 Epilepsy, unspecified, not intractable, without status epilepticus; E87.6 Hypokalemia; K70.10 Alcoholic hepatitis without ascites; F17.210 Nicotine dependence, cigarettes, uncomplicated; Z68.20 Body mass index [BMI] 20.0-20.9, adult; D53.9 Nutritional anemia, unspecified; F10.239 Alcohol dependence with withdrawal, unspecified; Y90.9 Presence of alcohol in blood, level not specified; M62.50 Muscle wasting and atrophy, not elsewhere classified, unspecified site; F32.9 Major depressive disorder, single episode, unspecified; R58 Hemorrhage, not elsewhere classified; K70.30 Alcoholic cirrhosis of liver without ascites; R29.6 Repeated falls; S00.83XA Contusion of other part of head, initial encounter; W19.XXXA Unspecified fall, initial encounter; Y93.9 Activity, unspecified; Y92.009 Unspecified place in unspecified non-institutional (private) residence as the place of occurrence of the external cause; Z53.09 Procedure and treatment not carried out because of other contraindication
CPT/HCPCS: 36415; 36600; 70450-TC; 71045-TC; 73200-TC; 80048-TC; 80053-TC; 80061-TC; 81000-TC; 82140-TC; 82272-TC; 82728-TC; 82803-TC; 83540-TC; 83690-TC; 83735-TC; 84100-TC; 84443-TC; 84484-TC; 85025-TC; 85610-TC; 85730-TC; 86850-TC; 86921-TC; 87081-TC; 87086-TC; 92526; 92611-TC; 93307-TC; 97110-TC; 97112-TC; 97530-TC; A4349; A4565; A6253; A9563; G0378; J2060; J2270; J2405; J2543; J3430; J3475; J3490; J7030; J7042; J7050; J7060; P9016-BL; P9034-BL

== ENCOUNTER 2019-04-25 23:38 | Inpatient (IN) | payer MEDICAID ==
[~2019-04-25] VITALS: Ht 172.7 cm; Wt 60.0 kg
[~2019-04-25 23:38] MED LIST changes: +ACET325T53 PO; +LACT-246 PO; +LACT10SO6 PO
[2019-04-26] MEDS ORDERED: IV NS 0.9% 1,000 ML BAG IV ONE
[2019-04-26] MEDS ORDERED: PANTOPRAZOLE 80 MG in IV NS 0.9% 100 ML IV ONE ×2
[2019-04-26] MEDS ORDERED: PANTOPRAZOLE 40 MG VIAL ONE ×3 (00:02→00:35)
[2019-04-26 00:28] LABS: BASOPHILS % (AUTO) 0.6 % (0.0-2.0); EOSINOPHILS % (AUTO) 1.4 % (0.0-6.0); HEMATOCRIT 32 % (39-51); HEMOGLOBIN 10.9 g/dL (13.5-17.5); LYMPHOCYTES # (AUTO) 0.7 /CMM (0.8-4.8); LYMPHOCYTES % (AUTO) 8.8 % (20.0-44.0); MEAN CORPUSCULAR HGB CONC 34 g/dl (31.0-36.0); MEAN CORPUSCULAR VOLUME 103 fL (80-96); MONOCYTES # (AUTO) 0.9 /CMM (0.1-1.30); MONOCYTES % (AUTO) 11.9 % (2.0-12.0); NEUTROPHILS # (AUTO) 5.8 /CMM (1.8-8.9); NEUTROPHILS % (AUTO) 77.3 % (43.0-81.0); PLATELET COUNT (AUTO) 92 /CMM (150-450); RED BLOOD CELL COUNT(AUTO) 3.14 MIL/uL (4.5-6.0); WHITE BLOOD COUNT (AUTO) 7.5 K/uL (4.3-11.0)
--- NOTE | 2019-04-26 00:28 | NUR ---
XRAY AT BEDSIDE
[2019-04-26] MEDS ORDERED: HYDROMORPHONE 1 MG/1 ML DISP.SYRIN IV ONE (00:30)
[2019-04-26] MEDS ORDERED: ONDANSETRON HCL/PF - ER 4 MG/2 ML VIAL IV ONE (00:30)
[2019-04-26] MEDS ORDERED: ONDANSETRON HCL/PF 4 MG/2 ML VIAL ONE (00:35)
[2019-04-26] MEDS ORDERED: HYDROMORPHONE 1 MG/1 ML DISP.SYRIN ONE (00:35)
[2019-04-26 00:36] LABS: CALCIUM, SERUM 9.5 mg/dL (8.5-10.1); CARBON DIOXIDE 26 mmol/L (21-32); CHLORIDE 105 mmol/L (98-107); CREATININE 0.7 mg/dL (0.6-1.3); GLUCOSE 108 mg/dL (74-106); POTASSIUM 3.5 mmol/L (3.5-5.1); SODIUM SERUM 138 mmol/L (136-145); UREA NITROGEN, BLOOD 7 mg/dL (7-18)
[2019-04-26 00:41] LABS: ALANINE AMINOTRANSFERASE 12 U/L (12-78); ALKALINE PHOSPHATASE 142 U/L (46-116); ASPARTATE AMINOTRANSFERASE 25 U/L (15-37); BILIRUBIN,DIRECT 0.8 mg/dL (0.0-0.2); BILIRUBIN,TOTAL 1.3 mg/dL (0.2-1.0); LIPASE 125 U/L (73-393); TOTAL PROTEIN, SERUM 8.1 g/dL (6.4-8.2)
--- NOTE | 2019-04-26 01:06 | NUR ---
PT CAME FROM [facility] FOR VOMITTING BLOOD. PT HAD RED STREAKS OF BLOOD IN HIS VOMIT, PER EMS REPORT. PT HAS HX OF BEING ANEMIC. AAOX2. NO SOB. NAD. BREATHING EVENLY AND UNLABORED. 2L OF N/C ADMINISTERED UPON ARRIVAL.. CONNECTED TO MONITOR.
[2019-04-26 01:30] LABS: OCCULT BLOOD STOOL POSITIVE (NEGATIVE)
[2019-04-26 01:41] LABS: LYMPHOCYTES % (MANUAL) 10 % (16-48); MONOCYTES % (MANUAL) 9 % (0-11.0); NEUTROPHILS % (MANUAL) 81 (42-76)
--- NOTE | 2019-04-26 02:00 | NUR ---
PATIENT IS SLEEPING. NAD. EASILY ARROUSABLE THROUGH PHYSICAL AND VERBAL STIMULI.
[2019-04-26] MEDS ORDERED: ZOLPIDEM TARTRATE 5 MG TABLET PO PRN (03:00)
[2019-04-26] MEDS ORDERED: MAGNESIUM HYDROXIDE 30 ML UDC PO PRN (03:00)
[2019-04-26] MEDS ORDERED: LACTULOSE 10 G/15 ML UDC (PYXIS) PO PRN (03:00)
[2019-04-26] MEDS ORDERED: Medication Not On Formulary EA (Lactulose (Duphalac) 30 ML) PO PRN (03:00)
[2019-04-26] MEDS ORDERED: HYDROCODONE/APAP 5/325MG 1 EACH TABLET PO PRN (03:00)
[2019-04-26] MEDS ORDERED: MAG HYDROX/AL HYDROX/SIMETH 30 ML UDC PO PRN (03:00)
[2019-04-26] MEDS ORDERED: ONDANSETRON HCL/PF 4 MG/2 ML VIAL IVP PRN (03:00)
[2019-04-26] MEDS ORDERED: ACETAMINOPHEN 325 MG TABLET PO PRN ×2 (03:00)
[2019-04-26] MEDS ORDERED: Z GUARD REMEDY 2 OZ OINT TP PRN (03:00)
--- NOTE | 2019-04-26 03:56 | NUR ---
REPORT GIVEN TO SHERLY FANG
--- NOTE | 2019-04-26 04:30 | NUR ---
RN ADMITTING NOTES Pt ARRIVED TO THE FLOOR VIA ER [facility]. TRANSFERRED Pt SAFELY TO THE ROOM BED WITH STAFF MEMBERS. Pt IS A/OX2, CONFUSED; ALERT TO SELF, , KNOWS HE IS AT [facility], BUT WAS UNABLE TO CORRECTLY STATE THE CURRENT DATE & YEAR AND CURRENT [place]. PRESIDENT. Pt STATED THAT THE YEAR IS 2017 AND THAT ASHWINI IS THE PRESIDENT. Pt IS VERBAL, AND ABLE TO MAKE NEEDS KNOWN. IV ACCESS ON RT HAND 22G, SL. NO ACUTE DISTRESS NOTED AT THIS TIME. Pt IS ON 2L O2 NC, SATING >92%. SAFETY MEASURES IN PLACE. BED LOW, LOCKED, HOB ELEVATED, SIDE RAILS UP, CALL LIGHT AND BEDSIDE TABLE WITHIN REACH. WILL CONTINUE TO MONITOR Pt's CONDITION & SAFETY THROUGHOUT THE NIGHT.
[2019-04-26 06:11] VITALS: BP 129/69
[2019-04-26 06:24] LABS: BASOPHILS % (AUTO) 0.5 % (0.0-2.0); EOSINOPHILS % (AUTO) 3.4 % (0.0-6.0); HEMATOCRIT 32 % (39-51); HEMOGLOBIN 10.7 g/dL (13.5-17.5); LYMPHOCYTES # (AUTO) 0.7 /CMM (0.8-4.8); LYMPHOCYTES % (AUTO) 12.4 % (20.0-44.0); MEAN CORPUSCULAR HGB CONC 34 g/dl (31.0-36.0); MEAN CORPUSCULAR VOLUME 102 fL (80-96); MONOCYTES # (AUTO) 0.8 /CMM (0.1-1.30); NEUTROPHILS # (AUTO) 3.6 /CMM (1.8-8.9); NEUTROPHILS % (AUTO) 68.7 % (43.0-81.0); PLATELET COUNT (AUTO) 82 /CMM (150-450); RED BLOOD CELL COUNT(AUTO) 3.08 MIL/uL (4.5-6.0); WHITE BLOOD COUNT (AUTO) 5.3 K/uL (4.3-11.0)
[2019-04-26 06:36] LABS: CALCIUM, SERUM 8.6 mg/dL (8.5-10.1); CREATININE 0.7 mg/dL (0.6-1.3); MAGNESIUM 1.5 mg/dL (1.8-2.4); PHOSPHORUS 3.4 mg/dL (2.5-4.9); POTASSIUM 3.5 mmol/L (3.5-5.1)
[2019-04-26 08:00] VITALS: BP 88/50
--- NOTE | 2019-04-26 08:00 | NUR ---
RN CLOSING NOTES NO SIGNIFICANT CHANGES NOTED DURING THE NIGHT. ALL NEEDS MET AND ATTENDED TO. Pt CURRENTLY RESTING IN BED. NO S/S OF ACUTE DISTRESS OR SOB NOTED. SAFETY MEASURES IN PLACE. BED LOW, LOCKED, HOB ELEVATED, SIDE RAILS UP, CALL LIGHT AND BEDSIDE TABLE WITHIN REACH. BED ALARM ON. WILL ENDORSE TO DAYSHIFT RN FOR Pt's LISA.
--- NOTE | 2019-04-26 08:00 | NUR ---
MS RN AM NOTES Pt IS A/OX2, CONFUSED; ALERT TO SELF, Pt IS VERBAL, AND ABLE TO MAKE NEEDS KNOWN. IV ACCESS ON RT HAND 22G, SL. NO ACUTE DISTRESS NOTED AT THIS TIME. Pt IS ON 2L O2 NC, SATING 99%. SAFETY MEASURES IN PLACE. BED LOW, LOCKED, HOB ELEVATED, SIDE RAILS UP, CALL LIGHT AND BEDSIDE TABLE WITHIN REACH. WILL CONTINUE TO MONITOR Pt's CONDITION & SAFETY
[2019-04-26] MEDS: SPIRONOLACTONE 25 MG TABLET PO SCH (09:00)
[2019-04-26] MEDS: PENTOXIFYLLINE 400 MG TABLET.SA PO SCH ×3 (09:32→17:41)
[2019-04-26] MEDS: ZONISAMIDE 100 MG CAPSULE PO SCH ×2 (09:32→17:45)
[2019-04-26] MEDS: LEVETIRACETAM (250 MG) 250 MG TABLET PO SCH ×2 (09:32→17:41)
[2019-04-26] MEDS: FERROUS SULFATE (325 MG) 325 MG/TAB TABLET PO SCH ×3 (09:32→17:41)
[2019-04-26] MEDS: FOLIC ACID 1 MG TABLET PO SCH (09:32)
[2019-04-26] MEDS: THIAMINE HCL 100 MG TABLET PO SCH (09:32)
[2019-04-26] MEDS: MULTIVITAMINS,THERAGRAN 1 UDTAB TABLET PO SCH (09:32)
[2019-04-26] MEDS: ENSURE ENLIVE 237 ML LIQUID (VANILLA) PO SCH ×2 (09:46→17:01)
[2019-04-26] MEDS: Magnesium 1GM/D5W 100ML PREMIX 100 ML IV SCH ×2 (10:13→11:31)
[2019-04-26] MEDS: PANTOPRAZOLE 40 MG VIAL IV SCH (10:28)
[2019-04-26 16:00] VITALS: BP 95/58
--- NOTE | 2019-04-26 19:30 | NUR ---
MS RN OPENING NOTES RECEIVED PATIENT FROM MORNING SHIFT, ALERT AND ORIENTED X 2. VERBALLY RESPONSIVE WITH CONFUSION BUT ABLE TO FOLLOW DIRECTIONS. BREATHING REGULAR AND UNLABORED ON ROOM AIR. RIGHT HAND G22 IV LINE INTACT AND PATENT, FLUSHING WELL WITH NO BLEEDING OR S/S OF INFECTION/INFILTRATION. BODY ASSESSMENT DONE. NO COMPLAINTS OF PAIN/DISCOMFORT REPORTED OF THE TIME. CALL LIGHT IN REACH. BED LOW AND LOCKED ON SEMI FOWLERS POSITION. WILL CONTINUE TO MONITOR.
[2019-04-26 20:18] VITALS: BP 96/56
[2019-04-26 20:42] VITALS: BP 96/56
--- NOTE | 2019-04-27 06:10 | NUR ---
MS RN CLOSING NOTES PATIENT IN BED, ALERT AND ORIENTED X 2 CONFUSED. VERBALLY RESPONSIVE AND ABLE TO FOLLOW DIRECTIONS. BREATHING REGULAR AND UNLABORED ON ROOM AIR. RIGHT HAND G22 IV LINE INTACT AND PATENT, FLUSHING WELL WITH NO BLEEDING OR S/S OF INFECTION/INFILTRATION. NO COMPLAINTS OF PAIN/DISCOMFORT REPORTED THE WHOLE SHIFT. CALL LIGHT IN REACH. BED LOW AND LOCKED ON SEMI FOWLERS POSITION. WILL ENDORSE TO MORNING SHIFT FOR LISA.
[2019-04-27 06:53] LABS: CALCIUM, SERUM 8.5 mg/dL (8.5-10.1); CREATININE 0.7 mg/dL (0.6-1.3); MAGNESIUM 1.5 mg/dL (1.8-2.4); POTASSIUM 3.6 mmol/L (3.5-5.1)
[2019-04-27 07:48] LABS: BASOPHILS % (AUTO) 0.7 % (0.0-2.0); EOSINOPHILS % (AUTO) 2.6 % (0.0-6.0); HEMATOCRIT 33 % (39-51); HEMOGLOBIN 11.1 g/dL (13.5-17.5); LYMPHOCYTES # (AUTO) 0.7 /CMM (0.8-4.8); LYMPHOCYTES % (AUTO) 12.5 % (20.0-44.0); MEAN CORPUSCULAR HGB CONC 33 g/dl (31.0-36.0); MEAN CORPUSCULAR VOLUME 102 fL (80-96); MONOCYTES # (AUTO) 0.8 /CMM (0.1-1.30); MONOCYTES % (AUTO) 14.7 % (2.0-12.0); NEUTROPHILS # (AUTO) 3.6 /CMM (1.8-8.9); NEUTROPHILS % (AUTO) 69.5 % (43.0-81.0); PLATELET COUNT (AUTO) 81 /CMM (150-450); RED BLOOD CELL COUNT(AUTO) 3.27 MIL/uL (4.5-6.0); WHITE BLOOD COUNT (AUTO) 5.2 K/uL (4.3-11.0)
[2019-04-27 08:00] VITALS: BP 88/44
--- NOTE | 2019-04-27 08:00 | NUR ---
MS RN AM NOTES Pt IS A/OX2, CONFUSED; ALERT TO SELF, Pt IS VERBAL, AND ABLE TO MAKE NEEDS KNOWN. IV ACCESS ON RT HAND 22G, SL. NO ACUTE DISTRESS NOTED AT THIS TIME. Pt IS ON ROOM AIR.SATING 99%. SAFETY MEASURES IN PLACE. BED LOW, LOCKED, HOB ELEVATED, SIDE RAILS UP, CALL LIGHT AND BEDSIDE TABLE WITHIN REACH. WILL CONTINUE TO MONITOR Pt's CONDITION & SAFETY
[2019-04-27] MEDS: SPIRONOLACTONE 25 MG TABLET PO SCH (09:00)
[2019-04-27] MEDS: FOLIC ACID 1 MG TABLET PO SCH (09:06)
[2019-04-27] MEDS: FERROUS SULFATE (325 MG) 325 MG/TAB TABLET PO SCH ×3 (09:06→17:19)
[2019-04-27] MEDS: MULTIVITAMINS,THERAGRAN 1 UDTAB TABLET PO SCH (09:06)
[2019-04-27] MEDS: PANTOPRAZOLE 40 MG VIAL IV SCH (09:06)
[2019-04-27] MEDS: THIAMINE HCL 100 MG TABLET PO SCH (09:06)
[2019-04-27] MEDS: LEVETIRACETAM (250 MG) 250 MG TABLET PO SCH ×2 (09:06→17:20)
[2019-04-27] MEDS: PENTOXIFYLLINE 400 MG TABLET.SA PO SCH ×3 (09:06→17:20)
[2019-04-27] MEDS: ENSURE ENLIVE 237 ML LIQUID (VANILLA) PO SCH ×2 (10:23→17:19)
[2019-04-27] MEDS: ZONISAMIDE 100 MG CAPSULE PO SCH ×2 (10:30→17:19)
[2019-04-27] MEDS: Magnesium 1GM/D5W 100ML PREMIX 100 ML IV SCH ×2 (10:55→12:47)
--- NOTE | 2019-04-27 11:00 | NUR ---
NOTIFIED DR GAUTAM ABOUT PT'S ORAL ON/OFF BLEEDING.ORAL CARE DONE AND IT STOPS.PT DENIES ORAL DISCOMFORT.DR GAUTAM STATED TO JUST MONITOR PT FOR FURTHER BLEEDING.PT HAS NOT MADE ANY BM DURING OUR SHIFT.WILL MONITOR.
--- NOTE | 2019-04-27 11:05 | NUR ---
WOUND CARE CONSULT: PT PRESENTS WITH SKIN DISCOLORATION/BRUISING TO UPPER EXTREMITIES, IMMOBILIZER TO LEFT SHOULDER AND PSORIATIC PATCHY SKIN TO RT LOWER LEG, PRESENT ON ADMISSION. PT ABLE TO ASSIST WITH TURNING AND REPOSITIONING IN BED AND GETS UP TO CHAIR WITH ASSISTANCE. WILL SEE PRN. RECOMMENDATIONS MADE FOR SKIN PROTECTION. DISCUSSED WITH NURSING STAFF. PT ON [facility] LOW AIRLOSS BED. Addendum: 04/27/19 at 1107 by SERVANDO KWONG WNDNU BLANCHABLE REDNESS TO BUTTOCKS NOTED.
[2019-04-27] MEDS ORDERED: IV NS 0.9% 500 ML IV ONE (13:00)
--- NOTE | 2019-04-27 14:00 | NUR ---
PT HAS 2ND BAG MAGNESIUM IV INFUSING DELAYING THE BOLUS OF NS 1/2 LITER
[2019-04-27 16:00] VITALS: BP 115/65
--- NOTE | 2019-04-27 18:39 | NUR ---
DISCHARGED PT TO [facility] VIA AMBULANCE WITH STABLE V/S.DENIES ANY PAIN OR DISTRESS.IV H/L TO RT HAND REMOVED WITHOUT BLEEDING NOTED.REPORT CALLED IN TO ANNALISA DICKSON HRIS DEVELOPER OF [facility].PT REFUSED PHOTOS TO BE TAKEN.DISCHARGE INSTRUCTIONS GIVEN TO YESSI.
== END 2019-04-27 18:40 | DRG 253 ==
LOC: ER 23:39 → TELE 04-26 03:30 → MED 04-26 04:17
PROVIDERS: ADMIT Internal Medicine; ATTEND Internal Medicine
DX: K92.2 Gastrointestinal hemorrhage, unspecified (principal); D68.8 Other specified coagulation defects; D69.6 Thrombocytopenia, unspecified; K70.30 Alcoholic cirrhosis of liver without ascites; K72.90 Hepatic failure, unspecified without coma; E88.09 Other disorders of plasma-protein metabolism, not elsewhere classified; D62 Acute posthemorrhagic anemia; G40.909 Epilepsy, unspecified, not intractable, without status epilepticus; Z87.11 Personal history of peptic ulcer disease; S42.212D Unspecified displaced fracture of surgical neck of left humerus, subsequent encounter for fracture with routine healing; X58.XXXD Exposure to other specified factors, subsequent encounter; F17.210 Nicotine dependence, cigarettes, uncomplicated; I10 Essential (primary) hypertension; F10.21 Alcohol dependence, in remission
CPT/HCPCS: 36415; 74022-TC; 80048-TC; 80061-TC; 80076-TC; 82140-TC; 82272-TC; 83690-TC; 83735-TC; 84100-TC; 84484-TC; 85025-TC; 85730-TC; 86850-TC; 87081-TC; 92521; 92526; 97112-TC; 97116-TC; 97530-TC; C9113; G0378; J1170; J2405; J3475; J7030; J7040

== ENCOUNTER 2019-05-27 02:43 | Emergency (ER) | payer MEDICAID ==
[~2019-05-27] VITALS: Ht 172.7 cm; Wt 67.1 kg
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
--- NOTE | 2019-05-27 03:08 | NUR ---
[facility]
--- NOTE | 2019-05-27 03:27 | NUR ---
PT RETURNED FROM [place].
--- NOTE | 2019-05-27 04:02 | NUR ---
CALLING [facility] FOR [facility]. TRIP #: [id number] ETA: [id number]
--- NOTE | 2019-05-27 04:21 | NUR ---
PT APPEARS TO BE RESTING COMFORTABLY WITH NO S/S OF PAIN OR DISTRESSS.
--- NOTE | 2019-05-27 04:52 | NUR ---
CALLING [facility] FOR REPORT.
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
--- NOTE | 2019-05-27 04:56 | NUR ---
SPOKE WITH ANNALISA NINO AT [facility]
[2019-05-27 04:57] VITALS: BP 110/55
== END 2019-05-27 04:57 | disposition home or self-care (01) ==
LOC: ER 02:45
DX: S00.83XA Contusion of other part of head, initial encounter (principal); R56.9 Unspecified convulsions; K21.9 Gastro-esophageal reflux disease without esophagitis; F17.200 Nicotine dependence, unspecified, uncomplicated; Z98.890 Other specified postprocedural states; Z79.899 Other long term (current) drug therapy; Z91.048 Other nonmedicinal substance allergy status; W18.39XA Other fall on same level, initial encounter; Y93.89 Activity, other specified; Y92.89 Other specified places as the place of occurrence of the external cause; Y99.8 Other external cause status
CPT/HCPCS: 70450-TC; 73030-TC; 73502; 73564-TC